=== PATIENT | female | born 1960 | race Hispanic/Latino ===

== ENCOUNTER 2018-07-25 09:24 | Inpatient (IN) | payer OTHER ==
[2018-07-25 09:36] VITALS: BMI 22.9
[2018-07-25] MEDS ORDERED: Sodium Chloride 0.9% 500 ML IV STA (09:38)
[2018-07-25] MEDS ORDERED: Naloxone 0.4 mg/ml Inj (Adult) IVP STA (09:38)
--- NOTE | 2018-07-25 09:51 | ED PDOC ---
Arrival/HPI - General Historian: Family, EMS - History of Present Illness Narrative History of Present Illness (Text): 07/25/18 09:39 Patient is a 58 year old female presenting to the emergency room unresponsive. Patient was found unresponsive by her son at home who called 911. and son arrived to the hospital shortly after to give history. Patient has no medical problems and was last seen normal this morning at 7:30am. When son went in to wake her up for work, when he was unable to wake her so he called 911. Per EMS, there was a note at the house stating, "I love you all so much, more than anything, I'm sorry." Patient was given 2mg of Narcan in the field with minimal response. There was a zip lock bag of unknown pills found in the house. Per family, patient has been reporting difficulty with sleep and went to see a psychologist for the first time yesterday. The family does not know what happened at her psychology appointment and does not know if she was prescribed any new medications. PMD: Dr. Steinberg <Harley Proctor - Last Filed: 07/25/18 13:59> <Lion Aguirre - Last Filed: 07/25/18 16:00> - General Chief Complaint: Altered Mental Status Time Seen by Provider: 07/25/18 09:28 Past Medical History - Provider Review Nursing Documentation Reviewed: Yes <Harley Proctor - Last Filed: 07/25/18 13:59> Family/Social History - Physician Review Nursing Documentation Reviewed: Yes Family/Social History: Unknown Family HX <Harley Proctor - Last Filed: 07/25/18 13:59> Allergies/Home Meds <Harley Proctor - Last Filed: 07/25/18 13:59> <iLon Aguirre - Last Filed: 07/25/18 16:00> Allergies/Adverse Reactions: Allergies Unobtainable Allergy (Verified 07/25/18 15:34) Home Medications: Home Meds Medication Instructions Recorded Confirmed Melatonin [Melatin 3 mg-1 mg] 1 tab PO PRN PRN 07/25/18 07/25/18 Review of Systems - Physician Review All systems were reviewed & negative as marked: Yes - Review of Systems Systems not reviewed;Unavailable: Altered Mental Status (unresponsive) <Harley Proctor - Last Filed: 07/25/18 13:59> Physical Exam - Physical Exam Physical Exam Limitations: Altered Mental Status Vital Signs Reviewed: Yes Temperature: Hypothermic Blood Pressure: Normal Pulse: Regular Respiratory Rate: Normal Appearance: Positive for: Well-Appearing, Non-Toxic, Comfortable Pain Distress: None Mental Status: Positive for: Alert and Oriented X 3 - Systems Exam Head: Present: Atraumatic, Normocephalic Pupils: Present: Other (3mm b/l). No: Pinpoint Conjunctiva: Present: Normal Mouth: Present: Moist Mucous Membranes Pharnyx: Present: Normal. No: ERYTHEMA, EXUDATE, TONSILS ENLARGED Nose (External): Present: Atraumatic Nose (Internal): Present: No Active Bleeding, Moist Respiratory/Chest: Present: Clear to Auscultation, Good Air Exchange. No: Respiratory Distress, Accessory Muscle Use Cardiovascular: Present: Regular Rate and Rhythm, Normal S1, S2. No: Murmurs Abdomen: No: Distention, Peritoneal Signs Upper Extremity: Present: Normal Inspection, NORMAL PULSES. No: Cyanosis, Edema Lower Extremity: Present: Normal Inspection, NORMAL PULSES. No: Edema Neurological: No: GCS=15 (GCS = 6 (eye 1, verbal 1, motor 4 - withdrawals from pain only)) Skin: Present: Warm, Dry, Normal Color. No: Rashes <Harley Proctor - Last Filed: 07/25/18 13:59> Vital Signs Pulse Resp BP Pulse Ox 07/25/18 09:25 88 20 107/62 99 - Systems Exam Neurological: Present: GCS=15 <Lion Aguirre - Last Filed: 07/25/18 16:00> Medical Decision Making ED Course and Treatment: Patient is a 58 year old female with no past medical history presenting unresponsive by EMS with apparent suicide note. There was a zip lock bag found with unknown pills inside. Bag sent to Pharmacy to be identified. GCS - 6 (eyes 1, verbal 1, motor 4 - withdrawals from pain) Attempted Narcan 0.4mg IVP - no response. (pt was also given 2mg in the field by EMS) Patient vomited once (prior to intubation) Patient intubated. * Etomidate 20mg, Succinylholine 100mg given * 7.5 tube, 23@lip * Post intubation CXR shows tube deep - tube pulled back 1 cm to 22@lip Labs, EKG and CT Head/Chest/Abd/pelvis Case discussed in detail with Dr. Zambrano (ICU) who has accepted patient. Case discussed in detail with Dr. Sadia Love (Hospitalist) who has accepted patient to hospitalist service (Private patient of Dr. Steinberg) Patient admitted to ICU. - Lab Interpretations I have reviewed the lab results: Yes - RAD Interpretation Narrative RAD Interpretations (Text): 07/25/18 13:59 Chest/abd/pel - no acute findings Head CT w/o - Limited study as above. No acute intracranial pathology identified. Please note that MRI with diffusion imaging is more sensitive in the detection of acute ischemic event. Mucosal thickening of the ethmoid air cells and sphenoid sinuses. Small fluid in the left sphenoid sinus. Partially imaged endotracheal tube and nasogastric tube. CXR - The endotracheal and nasogastric tubes are in satisfactory position. Bulk Loader: Radiologist - EKG Interpretation EKG Interpretation (Text): 07/25/18 11:13 NSR @77bpm, normal axis, prolonged QTc 486, no acute ST segment elevations or depressions. Interpreted by ED Physician: Yes Type: 12 lead EKG Comparison: No previous EKG avail. - Medication Orders Current Medication Orders: Naloxone HCl (Narcan) 0.4 mg IVP STAT STA Stop: 07/25/18 09:39 <Harley Proctor - Last Filed: 07/25/18 13:59> ED Course and Treatment: 07/25/18 10:20: Case discussed in detail with Dr. Zambrano (ICU). Accepted by ICU 07/25/18 10:31: Case discussed in detail with Dr. Hill Love (Hospitalist) Accepted to her service 58 yr old female p/w OD, Suicide attempt. No widening QRS on EKG or large R wave on AVR. Tox unremarkable. Given GCS of 6 pt was intubated. Tube in place, deep, 1cm pulled back. Fentanyl started by myself after pt noted to be retching on tube- ICU agreeable w/ fentanyl. - Lab Interpretations Lab Results: 07/25/18 09:30 07/25/18 09:30 Lab Results 07/25/18 09:50: Urine Color Yellow, Urine Appearance Clear, Urine pH 6.0, Ur Specific [place] <= 1.005, Urine Protein Negative, Urine Glucose (UA) Negative, Urine Ketones Negative, Urine Blood Negative, Urine Nitrate Negative, Urine Bilirubin Negative, Urine Urobilinogen 0.2, Ur Leukocyte Esterase Negative 07/25/18 09:30: Alcohol, Quantitative < 10 07/25/18 09:30: Salicylates < 1 L, Acetaminophen < 10.0 L 07/25/18 09:30: Sodium 141, Potassium 4.1, Chloride 107, Carbon Dioxide 20 L, Anion Gap 18, BUN 15, Creatinine 1.0, Est GFR ( Amer) > 60, Est GFR (Non- Af Amer) 57, Random Glucose 140 H, Calcium 8.5, Magnesium 2.5 H, Total Bilirubin 0.4, AST 23, ALT 26, Alkaline Phosphatase 62, Total Protein 6.2, Albumin 3.3, Globulin 2.9, Albumin/Globulin Ratio 1.1 07/25/18 09:30: WBC 9.0 D, RBC 4.27, Hgb 13.4, Hct 40.1, MCV 93.9, MCH 31.4, MCHC 33.4, RDW 12.3, Plt Count 207, MPV 9.2, Gran % 71.9 H, Lymph % (Auto) 20.5 L, [place] % (Auto) 7.2 H, Eos % (Auto) 0.3 L, Baso % (Auto) 0.1, Gran # 6.49, Lymph # (Auto) 1.9, [place] # (Auto) 0.7 H, Eos # (Auto) 0.0, Baso # (Auto) 0.01 - RAD Interpretation Radiology Orders: 07/25/18 09:39 CHEST PORTABLE [RAD] Stat 07/25/18 10:21 CHEST PORTABLE [RAD] Stat - Medication Orders Current Medication Orders: Fentanyl Citrate (Fentanyl Citrate/Sodium Chloride 1 Mg/100 Ml) 1,000 mcg in 100 mls @ 2 mls/hr IV .Q24H PRN; Protocol PRN Reason: TITRATE PER MD ORDER Discontinued Medications Sodium Chloride (Sodium Chloride 0.9%) 500 mls @ 1,000 mls/hr IV .Q30M STA Stop: 07/25/18 10:07 Last Admin: 07/25/18 09:50 Dose: 1,000 mls/hr eMAR Start Stop Document 07/25/18 09:50 SRE (Rec: 07/25/18 09:50 SRE [id number]) Intravenous Solution Start Date 07/25/18 Start Time 09:50 End Date 07/25/18 End time 10:20 Total Infusion Time 30 Naloxone HCl (Narcan) 0.4 mg IVP STAT STA Stop: 07/25/18 09:39 Last Admin: 07/25/18 09:49 Dose: 0.4 mg IVP Administration Document 07/25/18 09:49 SRE (Rec: 07/25/18 09:49 SRE [id number]) Charges for Administration # of IVP Administrations 1 <Lion Aguirre - Last Filed: 07/25/18 16:00> Disposition/Present on Arrival - Present on Arrival History of DVT/PE: No History of Uncontrolled Diabetes: No Urinary Catheter: No History of Decub. Ulcer: No History Surgical Site Infection Following: None <Harley Proctor - Last Filed: 07/25/18 13:59> - Present on Arrival Any Indicators Present on Arrival: No - Disposition Have Diagnosis and Disposition been Completed?: Yes Disposition Time: 10:31 <Lion Aguirre - Last Filed: 07/25/18 16:00> - Disposition Diagnosis: Overdose Disposition: HOSPITALIZED Patient Problems: Current Active Problems Problem Status Onset Overdose Acute Condition: CRITICAL
[2018-07-25] MEDS ORDERED: Etomidate 20 mg/10ml Inj IV ONE (09:56)
[2018-07-25] MEDS ORDERED: Succinylcholine 200 mg/10 ml Inj IV ONE (09:56)
[2018-07-25 10:03] LABS: URINE BILIRUBIN NEGATIVE (NEGATIVE); URINE BLOOD NEGATIVE (NEGATIVE); URINE GLUCOSE (UA) NEGATIVE (NEGATIVE); URINE LEUKOCYTE ESTERASE NEGATIVE Leu/uL (NEGATIVE); URINE PROTEIN NEGATIVE mg/dL (<30 mg/dL); URINE UROBILINOGEN 0.2 E.U./dL (<1 E.U./dL)
[2018-07-25 10:04] LABS: BASO # 0.01 K/mm3 (0.0-2.0); BASO % 0.1 % (0.0-3.0); EOS % 0.3 % (1.5-5.0); GRAN # 6.49 (1.4-6.5); GRAN % 71.9 % (50.0-68.0); HEMOGLOBIN 13.4 g/dL (12.0-16.0); LYMPH # 1.9 (1.2-3.4); LYMPH % 20.5 % (22.0-35.0); MEAN CELL VOLUME 93.9 fl (80.0-105.0); MEAN CORPUSCULAR HEMOGLOBIN 31.4 pg (25.0-35.0); MEAN CORPUSCULAR HGB CONC 33.4 g/dl (31.0-37.0); MEAN PLATELET VOLUME 9.2 fl (7.0-11.0); MONO # 0.7 (0.1-0.6); MONO % 7.2 % (1.0-6.0); RBC 4.27 10^6/uL (3.5-6.1); RED CELL DISTRIBUTION WIDTH 12.3 % (11.5-14.5)
[2018-07-25 10:05] LABS: URINE APPEARANCE CLEAR (CLEAR); URINE COLOR YELLOW (YELLOW)
[2018-07-25 10:16] LABS: ALB/GLOB RATIO 1.1 (1.1-1.8); ALBUMIN 3.3 g/dL (3.0-4.8); ALT/SGPT 26 U/L (7-56); AST/SGOT 23 U/L (14-36); BLOOD UREA NITROGEN 15 mg/dL (7-21); CALCIUM 8.5 mg/dL (8.4-10.5); GFR NON-AFRICAN AMERICAN 57
[2018-07-25 10:17] LABS: ACETAMINOPHEN < 10.0 ug/ml (10.0-20.0); SALICYLATE < 1 mg/dL (2.0-20.0)
[2018-07-25] MEDS ORDERED: Fentanyl 1000mcg/100ml NS 1,000 MCG/100 ML BAG IV PRN ×2 (10:21→12:06)
[2018-07-25 10:26] LABS: OPIATES, UR NEGATIVE (NEGATIVE)
[2018-07-25 10:29] LABS: BARBITURATES, UR NEGATIVE (NEGATIVE); BENZODIAZEPINES, UR NEGATIVE (NEGATIVE); PHENCYCLIDINE, UR NEGATIVE (NEGATIVE)
[2018-07-25 11:02] LABS: ARTERIAL BLOOD GAS HCO3 17.9 mmol/L (21-28); ARTERIAL BLOOD GAS O2 SAT 100.3 % (95-98); ARTERIAL BLOOD GAS PCO2 40 mm/Hg (35-45); ARTERIAL BLOOD GAS PH 7.26 (7.35-7.45); ARTERIAL BLOOD GAS TCO2 19.1 mmol.L (22-28)
--- NOTE | 2018-07-25 11:13 | CP.PCM.HP ---
<Stephanie White - Last Filed: 07/25/18 14:39> History of Present Illness - History of Present Illness History of Present Illness: Patient is a 58 year old female with no PMH who presented [place] [facility] after being found unresponsive at home by her son and BIBDean. Patient recieved Narcan in the field with little improvement. Patient was last seen normal this morning at 7:30am. When son went in to wake her up for work, when he was unable to wake her so he called 911. Per EMS, there was a note at the house stating, "I love you all so much, more than anything, I'm sorry." Patient was given 2mg of Narcan in the field with minimal response. There was a zip lock bag of unknown pills found in the house. Per family, patient has been reporting difficulty with sleep and went to see a psychologist for the first time yesterday. The family does not know what happened at her psychology appointment and does not know if she was prescribed any new medications. Family additionally indicates that patient has been feeling stressed and experiencing increased anxiety though they were unsure what the source of the anxiety was. Family is unsure of where/ how the patient may have obtained the pills as neither of them take any medications. History is limited to family as patient is intubated and not responsive upon interview. PMH: family denies PSH: family denies All: family unsure Social: family denies ETOH, tobacco and drug abuse PMD: Dr. Steinberg Present on Admission - Present on Admission Any Indicators Present on Admission: No Review of Systems - Review of Systems Systems not reviewed;Unavailable: Altered Mental Status, Intubated Past Patient History - Past Social History Smoking Status: Never Smoked - PSYCHIATRIC Hx Substance Use: No - ANESTHESIA Hx Anesthesia: No Meds Allergies/Adverse Reactions: Allergies Allergy/AdvReac Type Severity Reaction Status Date / Time Unobtainable Allergy Verified 07/25/18 15:34 Physical Exam - Constitutional Appears: Well, Non-toxic, Other (intubated) - Head Exam Head Exam: ATRAUMATIC, NORMOCEPHALIC - Eye Exam Eye Exam: Normal appearance, PERRL. absent: Conjunctival injection, Periorbital swelling, Scleral icterus Pupil Exam: PERRL. absent: Miosis, Mydriatic, Unequal - ENT Exam ENT Exam: Mucous Membranes Moist - Neck Exam Neck exam: Positive for: Full Rom - Respiratory Exam Respiratory Exam: NORMAL BREATHING PATTERN. absent: Rales, Rhonchi, Wheezes Additional comments: intubated - Cardiovascular Exam Cardiovascular Exam: REGULAR RHYTHM - GI/Abdominal Exam GI & Abdominal Exam: Soft. absent: Distended, Firm, Guarding, Rebound, Rigid, Tenderness - Extremities Exam Extremities exam: Positive for: normal capillary refill, pedal pulses present. Negative for: calf tenderness, pedal edema, tenderness - Neurological Exam Neurological exam: Altered - Psychiatric Exam Psychiatric exam: Suicidal Ideation (suspected, note left stating " I love you all more than anything, I'm sorry") - Skin Skin Exam: Dry, Intact, Normal Color, Warm Results - Vital Signs Recent Vital Signs: Last Vital Signs Temp 95.4 F L 07/25/18 09:25 Pulse 103 H 07/25/18 10:10 Resp 22 07/25/18 10:10 BP 122/62 07/25/18 10:10 Pulse Ox 97 07/25/18 10:10 - Labs Result Diagrams: 07/25/18 09:30 07/25/18 09:30 Labs: Laboratory Results - last 24 hr 07/25/18 07/25/18 07/25/18 09:30 09:30 09:30 WBC 9.0 D RBC 4.27 Hgb 13.4 Hct 40.1 MCV 93.9 MCH 31.4 MCHC 33.4 RDW 12.3 Plt Count 207 MPV 9.2 Gran % 71.9 H Lymph % (Auto) 20.5 L [place] % (Auto) 7.2 H Eos % (Auto) 0.3 L Baso % (Auto) 0.1 Gran # 6.49 Lymph # (Auto) 1.9 [place] # (Auto) 0.7 H Eos # (Auto) 0.0 Baso # (Auto) 0.01 Sodium 141 Potassium 4.1 Chloride 107 Carbon Dioxide 20 L Anion Gap 18 BUN 15 Creatinine 1.0 Est GFR ( Amer) > 60 Est GFR (Non-Af Amer) 57 Random Glucose 140 H Calcium 8.5 Magnesium 2.5 H Total Bilirubin 0.4 AST 23 ALT 26 Alkaline Phosphatase 62 Total Protein 6.2 Albumin 3.3 Globulin 2.9 Albumin/Globulin Ratio 1.1 Urine Color Urine Appearance Urine pH Ur Specific [place] Urine Protein Urine Glucose (UA) Urine Ketones Urine Blood Urine Nitrate Urine Bilirubin Urine Urobilinogen Ur Leukocyte Esterase Salicylates < 1 L Urine Opiates Screen Urine Methadone Screen Acetaminophen < 10.0 L Ur Barbiturates Screen Ur Phencyclidine Scrn Ur Amphetamines Screen U Benzodiazepines Scrn U Oth Cocaine Metabols U Cannabinoids Screen Alcohol, Quantitative 07/25/18 07/25/18 07/25/18 09:30 09:50 09:50 WBC RBC Hgb Hct MCV MCH MCHC RDW Plt Count MPV Gran % Lymph % (Auto) [place] % (Auto) Eos % (Auto) Baso % (Auto) Gran # Lymph # (Auto) [place] # (Auto) Eos # (Auto) Baso # (Auto) Sodium Potassium Chloride Carbon Dioxide Anion Gap BUN Creatinine Est GFR ( Amer) Est GFR (Non-Af Amer) Random Glucose Calcium Magnesium Total Bilirubin AST ALT Alkaline Phosphatase Total Protein Albumin Globulin Albumin/Globulin Ratio Urine Color Yellow Urine Appearance Clear Urine pH 6.0 Ur Specific [place] <= 1.005 Urine Protein Negative Urine Glucose (UA) Negative Urine Ketones Negative Urine Blood Negative Urine Nitrate Negative Urine Bilirubin Negative Urine Urobilinogen 0.2 Ur Leukocyte Esterase Negative Salicylates Urine Opiates Screen Negative Urine Methadone Screen Negative Acetaminophen Ur Barbiturates Screen Negative Ur Phencyclidine Scrn Negative Ur Amphetamines Screen Negative U Benzodiazepines Scrn Negative U Oth Cocaine Metabols Negative U Cannabinoids Screen Negative Alcohol, Quantitative < 10 Assessment & Plan - Assessment and Plan (Free Text) Assessment: 58 yr old female with suspected suicide attempt and possible overdose Plan: Possible Drug overdose: * admit to ICU for monitoring * f/u CT head, chest abdomen, pelvis * pharmacy evaluation of pills revealed multiviatmins and unknown white oval pill * poison control contacted, recommended CK value * ordered CK * wean ventilator as tolerated * will continue to monitor PPX: SCD, protonix, hold anticoagulation pending CT imaging Patient seen and examined with Dr. Hawk White, PGY 1 - Date & Time Date: 07/25/18 Time: 10:35 <Eboni Arechiga - Last Filed: 07/25/18 17:41> Results - Vital Signs Recent Vital Signs: Last Vital Signs Temp 98.7 F 07/25/18 16:14 Pulse 77 07/25/18 15:59 Resp 21 07/25/18 15:59 BP 116/66 07/25/18 16:00 Pulse Ox 100 07/25/18 15:59 - Labs Result Diagrams: 07/25/18 16:25 07/25/18 15:45 Labs: Laboratory Results - last 24 hr 07/25/18 07/25/18 07/25/18 09:30 09:30 09:30 WBC 9.0 D RBC 4.27 Hgb 13.4 Hct 40.1 MCV 93.9 MCH 31.4 MCHC 33.4 RDW 12.3 Plt Count 207 MPV 9.2 Gran % 71.9 H Lymph % (Auto) 20.5 L [place] % (Auto) 7.2 H Eos % (Auto) 0.3 L Baso % (Auto) 0.1 Gran # 6.49 Lymph # (Auto) 1.9 [place] # (Auto) 0.7 H Eos # (Auto) 0.0 Baso # (Auto) 0.01 pCO2 pO2 HCO3 ABG pH ABG Total CO2 ABG O2 Saturation ABG O2 Content ABG Base Excess ABG Hemoglobin ABG Carboxyhemoglobin POC ABG HHb (Measured) ABG Methemoglobin ABG O2 Capacity ABG Potassium VBG pH VBG pCO2 VBG HCO3 VBG Total CO2 VBG O2 Sat (Calc) VBG Base Excess VBG Potassium Hgb O2 Saturation Glucose Lactate Mechanical Rate FiO2 Tidal Volume PEEP Sodium 141 Potassium 4.1 Chloride 107 Carbon Dioxide 20 L Anion Gap 18 BUN 15 Creatinine 1.0 Est GFR ( Amer) > 60 Est GFR (Non-Af Amer) 57 Random Glucose 140 H Serum Osmolality Calcium 8.5 Magnesium 2.5 H Total Bilirubin 0.4 AST 23 ALT 26 Alkaline Phosphatase 62 Total Creatine Kinase Troponin I Total Protein 6.2 Albumin 3.3 Globulin 2.9 Albumin/Globulin Ratio 1.1 Arterial Blood Potassium Venous Blood Potassium Urine Color Urine Appearance Urine pH Ur Specific [place] Urine Protein Urine Glucose (UA) Urine Ketones Urine Blood Urine Nitrate Urine Bilirubin Urine Urobilinogen Ur Leukocyte Esterase Urine Osmolality Ur Random Sodium Ur Random Potassium Salicylates < 1 L Urine Opiates Screen Urine Methadone Screen Acetaminophen < 10.0 L Ur Barbiturates Screen Ur Phencyclidine Scrn Ur Amphetamines Screen U Benzodiazepines Scrn U Oth Cocaine Metabols U Cannabinoids Screen Alcohol, Quantitative 07/25/18 07/25/18 07/25/18 09:30 09:50 09:50 WBC RBC Hgb Hct MCV MCH MCHC RDW Plt Count MPV Gran % Lymph % (Auto) [place] % (Auto) Eos % (Auto) Baso % (Auto) Gran # Lymph # (Auto) [place] # (Auto) Eos # (Auto) Baso # (Auto) pCO2 pO2 HCO3 ABG pH ABG Total CO2 ABG O2 Saturation ABG O2 Content ABG Base Excess ABG Hemoglobin ABG Carboxyhemoglobin POC ABG HHb (Measured) ABG Methemoglobin ABG O2 Capacity ABG Potassium VBG pH VBG pCO2 VBG HCO3 VBG Total CO2 VBG O2 Sat (Calc) VBG Base Excess VBG Potassium Hgb O2 Saturation Glucose Lactate Mechanical Rate FiO2 Tidal Volume PEEP Sodium Potassium Chloride Carbon Dioxide Anion Gap BUN Creatinine Est GFR ( Amer) Est GFR (Non-Af Amer) Random Glucose Serum Osmolality Calcium Magnesium Total Bilirubin AST ALT Alkaline Phosphatase Total Creatine Kinase Troponin I Total Protein Albumin Globulin Albumin/Globulin Ratio Arterial Blood Potassium Venous Blood Potassium Urine Color Yellow Urine Appearance Clear Urine pH 6.0 Ur Specific [place] <= 1.005 Urine Protein Negative Urine Glucose (UA) Negative Urine Ketones Negative Urine Blood Negative Urine Nitrate Negative Urine Bilirubin Negative Urine Urobilinogen 0.2 Ur Leukocyte Esterase Negative Urine Osmolality Ur Random Sodium Ur Random Potassium Salicylates Urine Opiates Screen Negative Urine Methadone Screen Negative Acetaminophen Ur Barbiturates Screen Negative Ur Phencyclidine Scrn Negative Ur Amphetamines Screen Negative U Benzodiazepines Scrn Negative U Oth Cocaine Metabols Negative U Cannabinoids Screen Negative Alcohol, Quantitative < 10 07/25/18 07/25/18 07/25/18 10:50 15:05 15:45 WBC RBC Hgb Hct MCV MCH MCHC RDW Plt Count MPV Gran % Lymph % (Auto) [place] % (Auto) Eos % (Auto) Baso % (Auto) Gran # Lymph # (Auto) [place] # (Auto) Eos # (Auto) Baso # (Auto) pCO2 40 37 pO2 205.0 H 192.0 H HCO3 17.9 L 16.6 L ABG pH 7.26 L 7.26 L ABG Total CO2 19.1 L 17.7 L ABG O2 Saturation 100.3 H 100.1 H ABG O2 Content 20.4 ABG Base Excess -8.7 L -9.7 L ABG Hemoglobin 14.5 ABG Carboxyhemoglobin 1.2 POC ABG HHb (Measured) -0.1 L ABG Methemoglobin 0.7 ABG O2 Capacity 20.4 ABG Potassium 3.8 VBG pH VBG pCO2 VBG HCO3 VBG Total CO2 VBG O2 Sat (Calc) VBG Base Excess VBG Potassium Hgb O2 Saturation 98.2 H Glucose 118 H Lactate 2.2 H Mechanical Rate 16 FiO2 40.0 40.0 Tidal Volume 400 PEEP 5 Sodium 141.0 149 H Potassium 3.9 Chloride 114.0 H 113 H Carbon Dioxide 21 Anion Gap 19 BUN 15 Creatinine 1.0 Est GFR ( Amer) > 60 Est GFR (Non-Af Amer) 57 Random Glucose 112 H Serum Osmolality Calcium 8.3 L Magnesium Total Bilirubin AST ALT Alkaline Phosphatase Total Creatine Kinase 163 Troponin I < 0.01 Total Protein Albumin Globulin Albumin/Globulin Ratio Arterial Blood Potassium 3.8 Venous Blood Potassium Urine Color Urine Appearance Urine pH Ur Specific [place] Urine Protein Urine Glucose (UA) Urine Ketones Urine Blood Urine Nitrate Urine Bilirubin Urine Urobilinogen Ur Leukocyte Esterase Urine Osmolality Ur Random Sodium Ur Random Potassium Salicylates Urine Opiates Screen Urine Methadone Screen Acetaminophen Ur Barbiturates Screen Ur Phencyclidine Scrn Ur Amphetamines Screen U Benzodiazepines Scrn U Oth Cocaine Metabols U Cannabinoids Screen Alcohol, Quantitative 07/25/18 07/25/18 07/25/18 15:45 15:45 16:25 WBC 7.5 RBC 4.62 Hgb 14.6 Hct 44.3 MCV 95.9 MCH 31.6 MCHC 33.0 RDW 12.5 Plt Count 212 MPV 8.8 Gran % 86.3 H Lymph % (Auto) 11.3 L [place] % (Auto) 2.3 Eos % (Auto) 0.0 L Baso % (Auto) 0.1 Gran # 6.49 Lymph # (Auto) 0.9 L [place] # (Auto) 0.2 Eos # (Auto) 0.0 Baso # (Auto) 0.01 pCO2 pO2 45 HCO3 ABG pH ABG Total CO2 ABG O2 Saturation ABG O2 Content ABG Base Excess ABG Hemoglobin ABG Carboxyhemoglobin POC ABG HHb (Measured) ABG Methemoglobin ABG O2 Capacity ABG Potassium VBG pH 7.19 L* VBG pCO2 53.0 VBG HCO3 20.2 L VBG Total CO2 21.8 L VBG O2 Sat (Calc) 81.4 H VBG Base Excess -8.3 L VBG Potassium 3.8 Hgb O2 Saturation Glucose 109 H Lactate 1.9 Mechanical Rate FiO2 21.0 Tidal Volume PEEP Sodium 146.0 Potassium Chloride 112.0 H Carbon Dioxide Anion Gap BUN Creatinine Est GFR ( Amer) Est GFR (Non-Af Amer) Random Glucose Serum Osmolality 311 H Calcium Magnesium Total Bilirubin AST ALT Alkaline Phosphatase Total Creatine Kinase Troponin I Total Protein Albumin Globulin Albumin/Globulin Ratio Arterial Blood Potassium Venous Blood Potassium 3.8 Urine Color Urine Appearance Urine pH Ur Specific [place] Urine Protein Urine Glucose (UA) Urine Ketones Urine Blood Urine Nitrate Urine Bilirubin Urine Urobilinogen Ur Leukocyte Esterase Urine Osmolality Ur Random Sodium Ur Random Potassium Salicylates Urine Opiates Screen Urine Methadone Screen Acetaminophen Ur Barbiturates Screen Ur Phencyclidine Scrn Ur Amphetamines Screen U Benzodiazepines Scrn U Oth Cocaine Metabols U Cannabinoids Screen Alcohol, Quantitative 07/25/18 16:31 WBC RBC Hgb Hct MCV MCH MCHC RDW Plt Count MPV Gran % Lymph % (Auto) [place] % (Auto) Eos % (Auto) Baso % (Auto) Gran # Lymph # (Auto) [place] # (Auto) Eos # (Auto) Baso # (Auto) pCO2 pO2 HCO3 ABG pH ABG Total CO2 ABG O2 Saturation ABG O2 Content ABG Base Excess ABG Hemoglobin ABG Carboxyhemoglobin POC ABG HHb (Measured) ABG Methemoglobin ABG O2 Capacity ABG Potassium VBG pH VBG pCO2 VBG HCO3 VBG Total CO2 VBG O2 Sat (Calc) VBG Base Excess VBG Potassium Hgb O2 Saturation Glucose Lactate Mechanical Rate FiO2 Tidal Volume PEEP Sodium Potassium Chloride Carbon Dioxide Anion Gap BUN Creatinine Est GFR ( Amer) Est GFR (Non-Af Amer) Random Glucose Serum Osmolality Calcium Magnesium Total Bilirubin AST ALT Alkaline Phosphatase Total Creatine Kinase Troponin I Total Protein Albumin Globulin Albumin/Globulin Ratio Arterial Blood Potassium Venous Blood Potassium Urine Color Urine Appearance Urine pH Ur Specific [place] Urine Protein Urine Glucose (UA) Urine Ketones Urine Blood Urine Nitrate Urine Bilirubin Urine Urobilinogen Ur Leukocyte Esterase Urine Osmolality 337 Ur Random Sodium 146 Ur Random Potassium 14.5 Salicylates Urine Opiates Screen Urine Methadone Screen Acetaminophen Ur Barbiturates Screen Ur Phencyclidine Scrn Ur Amphetamines Screen U Benzodiazepines Scrn U Oth Cocaine Metabols U Cannabinoids Screen Alcohol, Quantitative Attending/Attestation - Attestation I have personally seen and examined this patient.: Yes I have fully participated in the care of the patient.: Yes I have reviewed all pertinent clinical information: Yes Notes (Text): 07/25/18 17:36 58 year old female with no known past medical history who was found unresponsive at home by the son. Per EMS a note was also found stating, "I love you so much, more than anything, I'm sorry" alone with a ziplock bag with unknown pills at home. She received narcan with minimal response. She was intubated for airway protection. Urine drug screen, alcohol and tylenol level were negative. CT head and CT chest/abdomen/pelvis are ordered. EKG shows prolonged QTc. Patient will be admitted to ICU. Consider 1:1 observation and psychiatry evaluation once patient is extubated. Eboni Arechiga MD Hospitalist.
--- NOTE | 2018-07-25 11:26 | PCM.PROC ---
Procedures Attestation:: I certify that I have explained the specified Operation(s) or Procedure(s), risks, benefits and reasonable alternatives to the Patient and/or other person responsible. The opportunity was given to ask questions and all questions answered - Intubation Time Out Performed: Yes Sedative: Etomidate Mg Given: 20 Paralytic: Succinylholine Mg Given: 100 Laryngoscope: Riley (3) ET Tube Size: 7.5 ET Tube Uncuffed: No ET Tube Secured at Depth: 23 ET Tube Secured Locarion: Lips ET Tube Placement Confirmation: Visualized Passing Through Cords, Breath Sounds Equal Bilaterally, No Breath Sounds Over Epigastrum, Confirmation w/Capnometry Patient Tolerated Procedure: Well Procedure Immediate Complications: None
--- NOTE | 2018-07-25 11:27 | RAD ---
Date of service: 07/25/2018 HISTORY: ams COMPARISON: No prior. FINDINGS: LUNGS: No active pulmonary disease. PLEURA: No significant pleural effusion identified, no pneumothorax apparent. CARDIOVASCULAR: Normal. OSSEOUS STRUCTURES: No significant abnormalities. VISUALIZED UPPER ABDOMEN: Normal. OTHER FINDINGS: None. IMPRESSION: No active disease.
--- NOTE | 2018-07-25 11:28 | RAD ---
Date of service: 07/25/2018 HISTORY: post tube COMPARISON: 07/25/2018 FINDINGS: LUNGS: No active pulmonary disease. PLEURA: No significant pleural effusion identified, no pneumothorax apparent. CARDIOVASCULAR: Normal. OSSEOUS STRUCTURES: No significant abnormalities. VISUALIZED UPPER ABDOMEN: Normal. OTHER FINDINGS: None. IMPRESSION: No active disease.
[2018-07-25] MEDS ORDERED: Iohexol 350 MG/100 ML VIAL ONE (12:37)
--- NOTE | 2018-07-25 12:40 | RAD ---
Date of service: 07/25/2018 HISTORY: post og placement COMPARISON: 07/25/2018 FINDINGS: LUNGS: No active pulmonary disease. PLEURA: No significant pleural effusion identified, no pneumothorax apparent. CARDIOVASCULAR: Normal. OSSEOUS STRUCTURES: No significant abnormalities. VISUALIZED UPPER ABDOMEN: Normal. OTHER FINDINGS: None. IMPRESSION: The endotracheal and nasogastric tubes are in satisfactory position
[2018-07-25] MEDS ORDERED: Sodium Chloride 0.9% 1,000 ML IV SCH (13:00)
--- NOTE | 2018-07-25 13:31 | CT ---
Date of service: 07/25/2018 PROCEDURE: CT HEAD WITHOUT CONTRAST. HISTORY: syncope, intubated COMPARISON: None available. TECHNIQUE: Axial computed tomography images were obtained through the head/brain without intravenous contrast. Radiation dose: Total exam DLP = 914.98 mGy-cm. This CT exam was performed using one or more of the following dose reduction techniques: Automated exposure control, adjustment of the mA and/or kV according to patient size, and/or use of iterative reconstruction technique. FINDINGS: Examination markedly limited by patient positioning. Extensive streak artifact obscures evaluation of the skull base. Partially imaged endotracheal tube and nasogastric tube. HEMORRHAGE: No intracranial hemorrhage. BRAIN: No mass effect or edema. The agarwal-white matter differentiation appears intact. Please note that MRI with diffusion imaging is more sensitive in the detection of acute ischemic event. VENTRICLES: No hydrocephalus. CALVARIUM: Unremarkable. PARANASAL SINUSES: Mucosal thickening of the ethmoid air cells and sphenoid sinuses. Small fluid in the left sphenoid sinus. MASTOID AIR CELLS: Unremarkable as visualized. No inflammatory changes. OTHER FINDINGS: None. IMPRESSION: Limited study as above. No acute intracranial pathology identified. Please note that MRI with diffusion imaging is more sensitive in the detection of acute ischemic event. Mucosal thickening of the ethmoid air cells and sphenoid sinuses. Small fluid in the left sphenoid sinus. Partially imaged endotracheal tube and nasogastric tube.
--- NOTE | 2018-07-25 13:51 | CT ---
Date of service: 07/25/2018 PROCEDURE: CT Chest, Abdomen and Pelvis with intravenous contrast HISTORY: syncope, intubated, abdominal pain COMPARISON: None available. TECHNIQUE: IV dose administered: 100 cc of Omni 350 Radiation dose: Total exam DLP = 563 mGy-cm. This CT exam was performed using one or more of the following dose reduction techniques: Automated exposure control, adjustment of the mA and/or kV according to patient size, and/or use of iterative reconstruction technique. FINDINGS: CT CHEST WITH CONTRAST: LUNGS: Clear. No nodule, mass or consolidation. MEDIASTINUM: Unremarkable. Normal caliber aorta and pulmonary arterial trunk. No aortic dissection. Normal size heart. LYMPH NODES: Unremarkable. PLEURA: Unremarkable. No pneumothorax. No pleural fluid. BONES: Unremarkable. OTHER FINDINGS: None. CT ABDOMEN AND PELVIS: LIVER: Unremarkable. No gross lesion or ductal dilatation. GALLBLADDER AND BILE DUCTS: Unremarkable. PANCREAS: Unremarkable. No gross lesion or ductal dilatation. SPLEEN: Unremarkable. ADRENALS: Unremarkable. No mass. KIDNEYS AND URETERS: Unremarkable. No hydronephrosis. No solid mass. VASCULATURE: Unremarkable. No aortic aneurysm. BOWEL: Unremarkable. No obstruction. No gross mural thickening. APPENDIX: Normal appendix. PERITONEUM: Unremarkable. No free fluid. No free air. LYMPH NODES: Unremarkable. No enlarged lymph nodes. BLADDER: Unremarkable. REPRODUCTIVE: Unremarkable. BONES: No acute fracture. OTHER FINDINGS: None. IMPRESSION: No acute findings
[2018-07-25 15:11] LABS: ARTERIAL BLOOD GAS HCO3 16.6 mmol/L (21-28); ARTERIAL BLOOD GAS HEMOGLOBIN 14.5 g/dL (11.7-17.4); ARTERIAL BLOOD GAS O2 CAPACITY 20.4 mL/dl (16-24); ARTERIAL BLOOD GAS O2 CONTENT 20.4 ML/dl (15-23); ARTERIAL BLOOD GAS O2 SAT 100.1 % (95-98); ARTERIAL BLOOD GAS PCO2 37 mm/Hg (35-45); ARTERIAL BLOOD GAS PH 7.26 (7.35-7.45); ARTERIAL BLOOD GAS TCO2 17.7 mmol.L (22-28)
--- NOTE | 2018-07-25 15:12 | CARD ---
APPROVED REPORT Date of service: 07/25/2018 EKG Measurement Heart [id number] <Conclusion> Normal sinus rhythm Prolonged QT Abnormal ECG
[2018-07-25] MEDS ORDERED: Sodium Bicarbonate 8.4% 75 MEQ in Dextrose 5% In Water 1,000 ML IV SCH (15:45)
[2018-07-25 15:58] LABS: VENOUS BLOOD GAS BASE EXCESS -8.3 mmol/L (0.0-2.0); VENOUS BLOOD GAS PO2 45 mm/Hg (30-55)
[2018-07-25] MEDS ORDERED: Sodium Chloride 0.9% 1,000 ML IV STA (16:00)
[2018-07-25 16:05] LABS: VENOUS BLOOD PH 7.19 (7.32-7.43)
[2018-07-25 16:09] LABS: BLOOD UREA NITROGEN 15 mg/dL (7-21); CALCIUM 8.3 mg/dL (8.4-10.5); GFR NON-AFRICAN AMERICAN 57
[2018-07-25] MEDS ORDERED: Pneumococcal 23-Valent Vaccine IM ONE (16:16)
[2018-07-25] MEDS ORDERED: Influenza Vaccine 60 mcg/0.5 mL SYR (4YR UP) IM ONE (16:16)
[2018-07-25 16:20] LABS: TROPONIN I < 0.01 ng/mL
[2018-07-25 16:37] LABS: BASO # 0.01 K/mm3 (0.0-2.0); BASO % 0.1 % (0.0-3.0); GRAN # 6.49 (1.4-6.5); GRAN % 86.3 % (50.0-68.0); HEMOGLOBIN 14.6 g/dL (12.0-16.0); LYMPH # 0.9 (1.2-3.4); LYMPH % 11.3 % (22.0-35.0); MEAN CELL VOLUME 95.9 fl (80.0-105.0); MEAN CORPUSCULAR HEMOGLOBIN 31.6 pg (25.0-35.0); MEAN PLATELET VOLUME 8.8 fl (7.0-11.0); MONO # 0.2 (0.1-0.6); MONO % 2.3 % (1.0-6.0); RBC 4.62 10^6/uL (3.5-6.1); RED CELL DISTRIBUTION WIDTH 12.5 % (11.5-14.5); WHITE BLOOD COUNT 7.5 10^3/ul (4.5-11.0)
[2018-07-25] MEDS: Sodium Bicarbonate 8.4% 75 MEQ in Dextrose 5% In Water 1,000 ML IV SCH ×2 (16:56→22:29)
--- NOTE | 2018-07-25 18:03 | CON ---
DATE: 07/25/2018 HISTORY OF PRESENT ILLNESS: The patient is a 58-year-old lady without any significant past medical history according to her primary medical doctor, , who was found by her family extremely sleepy and somnolent in the morning where they were not able to wake her up. She was emergently brought into ER where she was intubated to protect her airways. No opiates, benzodiazepines were found in close proximities to her; however, bottle with melatonin pills was found. The patient is not known to use any recreational or prescriptional drugs and has not been diagnosed with any chronic medical conditions. She does have occasional abdominal pain; however, test in emergency room was negative. No chest pain, no shortness of breath, no diarrhea, no constipation were noted by family member; however, the patient vomited once prior to intubation here in the emergency room. PAST MEDICAL HISTORY: None. PAST SURGICAL HISTORY: None. HOME MEDICATIONS: None. ALLERGIES: NKDA. REVIEW OF SYSTEMS: Review of 12-organ systems other than mentioned in the history of present illness is negative. FAMILY HISTORY: Noncontributory. SOCIAL HISTORY: No alcohol or illicit drug abuse. Chest x-ray in the emergency room did not reveal any acute pulmonary disease. EKG did not show any specific ischemic changes. PHYSICAL EXAMINATION: VITAL SIGNS: Heart rate 92, blood pressure 107/84, respiratory rate 24, oxygen saturation 100% on 60% FIO2. ENT: Head and neck atraumatic. LUNGS: Clear to auscultation bilaterally. HEART: Regular rate and rhythm. S1 and S2 normal. ABDOMEN: Soft, nontender and nondistended. MUSCULOSKELETAL: No C/C/E. NEURO: The patient was noted to move all extremities spontaneously. SKIN: Moist. PSYCH: The patient is alert, awake and oriented x3. Bedside echocardiogram did not reveal any severe left ventricular or right ventricular systolic dysfunction. LABORATORY DATA: WBC 9, hemoglobin 13.4, platelet count 207. Sodium 141, potassium 4.1, chloride 107, carbon dioxide 20, BUN 15, creatinine 1, glucose 140, magnesium 2.5, calcium 8.5, AST 23, ALT 26, total bilirubin 0.4. ABG showed last intubation showed 7.26/40/205. Chloride 114, glucose 118, lactic acid 2.2 that was on PEEP 5, FIO2 40%, respiratory rate 16. Respiratory rate was increased to 20. ABG will be repeated. ASSESSMENT AND PLAN: This is a 58-year-old lady, who was found unresponsive early in the morning by her family. She was intubated for airway protection. No clear-cut etiology of her altered mental status noted. She did, however, vomit once prior to intubation. No signs of cardiogenic shock. I also has low suspicion for septic shock as the patient does not have leukocytosis and fever. Urine toxicology screen is negative for Pneumocystis carinii pneumonia, amphetamine, benzodiazepines, opiates and methadone. Her salicylates, acetaminophen and alcohol level within normal limits. Her LFTs are within normal limits as well. She is not known to abuse alcohol, any recreational drugs. I will, however, proceed with CAT scan of the head and CT of chest, abdomen and pelvis with IV contrast to rule out any uncommon pathologies that could have caused her altered mental status. I will proceed with EEG. I will proceed with troponin trend. If no any particular abnormalities found and the patient recovered her mental status past spontaneous breathing trial, we will prepare her for extubation. Meanwhile, orogastric tube was placed, put on suction as the patient vomited before. Blood, urine culture were sent. Franko Zambrano MD
[2018-07-25] MEDS ORDERED: Sodium Chloride 0.45% 1,000 ML IV SCH (20:00)
[2018-07-25 21:06] LABS: BLOOD UREA NITROGEN 17 mg/dL (7-21); CALCIUM 7.7 mg/dL (8.4-10.5); GFR NON-AFRICAN AMERICAN 57
[2018-07-25 22:37] LABS: ARTERIAL BLOOD GAS HCO3 19.7 mmol/L (21-28); ARTERIAL BLOOD GAS O2 CAPACITY 19.8 mL/dl (16-24); ARTERIAL BLOOD GAS O2 CONTENT 19.9 ML/dl (15-23); ARTERIAL BLOOD GAS O2 SAT 100.5 % (95-98); ARTERIAL BLOOD GAS PCO2 34 mm/Hg (35-45); ARTERIAL BLOOD GAS PH 7.37 (7.35-7.45); ARTERIAL BLOOD GAS TCO2 20.7 mmol.L (22-28)
[2018-07-26] MEDS ORDERED: Sodium Bicarbonate 8.4% 75 MEQ in Dextrose 5% In Water 1,000 ML IV SCH (00:45)
[2018-07-26] MEDS: Sodium Chloride 0.45% 1,000 ML IV SCH ×3 (01:16→08:41)
[2018-07-26 06:04] LABS: GRAN # 7.24 (1.4-6.5); GRAN % 82.7 % (50.0-68.0); HEMOGLOBIN 13.6 g/dL (12.0-16.0); LYMPH # 0.7 (1.2-3.4); LYMPH % 8.5 % (22.0-35.0); MEAN CELL VOLUME 93.6 fl (80.0-105.0); MEAN CORPUSCULAR HEMOGLOBIN 31.1 pg (25.0-35.0); MEAN CORPUSCULAR HGB CONC 33.2 g/dl (31.0-37.0); MEAN PLATELET VOLUME 9.1 fl (7.0-11.0); MONO # 0.8 (0.1-0.6); MONO % 8.8 % (1.0-6.0); RBC 4.38 10^6/uL (3.5-6.1); RED CELL DISTRIBUTION WIDTH 12.8 % (11.5-14.5); WHITE BLOOD COUNT 8.8 10^3/ul (4.5-11.0)
[2018-07-26 06:49] LABS: ALB/GLOB RATIO 1.2 (1.1-1.8); ALBUMIN 3.2 g/dL (3.0-4.8); ALT/SGPT 27 U/L (7-56); AST/SGOT 32 U/L (14-36); BLOOD UREA NITROGEN 20 mg/dL (7-21); CALCIUM 6.8 mg/dL (8.4-10.5); GFR NON-AFRICAN AMERICAN 51
[2018-07-26] MEDS: Potassium Chloride 40 mEq/30 ml LIQ UD PO ONE ×2 (09:01→09:09)
--- NOTE | 2018-07-26 09:18 | PN ---
DATE: 07/26/2018 STACK CLERK NOTE LOCATION: At [facility]. SUBJECTIVE: The patient is resting in bed, awake and alert. Complains of no pain. No shortness of breath, cough, wheezing, chest congestion. No nausea or vomiting. No diarrhea. Is very comfortable. The patient is still on one-to-one watch. PHYSICAL EXAMINATION: VITAL SIGNS: Physical exam note that her temperature is 98, pulse is 85, respirations are 28 and BP is 128/67. SKIN: Warm and dry. HEENT: Head atraumatic, normocephalic. Eyes reactive to light. Ears, nose and throat seemed to be within normal limits. NECK: Supple. No JVD. No thyroid enlargement. No lymph nodes. HEART: Regular rate and rhythm. Normal S1, S2. LUNGS: Reveal good breath sounds bilaterally. ABDOMEN: Soft, nontender. Normal bowel sounds. No organomegaly noted. GENITALIA AND RECTAL: Deferred. MUSCULOSKELETAL: No joint deformities. EXTREMITIES: Reveal trace lower extremity edema. NEUROLOGICAL: She seems to be grossly intact. LABORATORY DATA: As far as her laboratories, her white count is 8.8, hemoglobin is 13.6, hematocrit 41 and platelets of 208,000. The patient's sodium is 141, potassium 3, chloride 108, CO2 of 24 with a BUN of 20, creatinine of 1.1 and a glucose is 130. As far as chest x-ray, reveals no infiltrates. IMPRESSION: This patient had a suicide attempt and presents with unknown drug overdose. The patient has a history of depression and is status post ventilator support and metabolic acidosis. The patient continues to require one-to-one observation. PLAN: As far as our plan, we will continue the one-to-one observation. She is on IV fluids of half normal saline and heparin subcu. The patient is getting Protonix as well as Zofran p.r.n. The patient is being seen by Psychiatry. We will continue to treat aggressively along with the other consultants and the primary care doctor. Jason Whitehead MD
--- NOTE | 2018-07-26 11:14 | CON ---
DATE: 07/25/2018 LOCATION: [facility] NEPHROLOGY CONSULTATION HISTORY OF PRESENT ILLNESS: The patient is a 58-year-old female with no past medical history, brought to ED after family found her unresponsive this morning. Nephrology now being consulted for metabolic abnormalities. Per the patient's son, she was very difficult to arouse; and therefore, subsequently EMS was called, and the patient was given Narcan in the field with little improvement. The patient was intubated for airway protection in ED. Was also given 500 mL of normal saline bolus and placed on normal saline at 100 mL per hour. The patient was also given dose of naloxone. In ICU, the patient self-extubated, was found to be persistently acidotic and placed on bicarb drip. Currently, the patient is alert, able to give history, keeps saying that she wanted to make things easier for her family and hence took half a bottle of ibuprofen. The patient denies taking any other substance including alcohol. The patient, otherwise, reports no nausea, vomiting or diarrhea lately. Appetite has been decreased over past few days. Denies any fever or chills. PAST MEDICAL HISTORY: As above. SOCIAL HISTORY: Never a smoker. No significant drinking history. FAMILY HISTORY: The patient denies. REVIEW OF SYSTEMS: CONSTITUTIONAL: Denies any fevers or chills. HEENT: Denies any difficulty swallowing. RESPIRATORY: Denies any shortness of breath. CARDIOVASCULAR: Denies any chest pain, occasional palpitations. GI: As per HPI. Family also reports constipation. : Reports chronic dysuria; urinates 4 to 5 times per night; drinks a lot of water, cannot quantify how much. EXTREMITIES: Denies any leg swelling. NEURO: Denies any headaches, dizziness. PSYCHIATRIC: Family reports has issues with anxiety. VITAL SIGNS: On presentation, blood pressure 107/62, decreasing to 90/31, currently 135/75 with heart rate of 83, respirations 20, temperature 98.7, O2 sat 100% on high-flow oxygen. PHYSICAL EXAMINATION: GENERAL: No distress. Conversing coherently in full sentences. HEENT: Moist mucous membranes. Nonicteric. No cervical lymphadenopathy. RESPIRATORY: Lungs clear to auscultation bilaterally. No rales, no rhonchi, no wheezes. CARDIOVASCULAR: Heart sounds S1, S2 normal. No murmurs, no gallops, no rubs. GI: Abdomen soft, nontender, nondistended. : No bladder distention. EXTREMITIES: No leg edema. SKIN: Warm. No cyanosis. PSYCHIATRIC: Not agitated, normal mood. LABORATORY DATA: CBC: WBC 7.5, hemoglobin 14.6, hematocrit 44.3, platelets 212. Chemistry panel: Sodium 149, potassium 3.9, chloride 113, bicarb 21, BUN 15, creatinine 1.0, glucose 112, calcium 8.3. Serum osmolality 311. ABG this afternoon, pH 7.26, pCO2 37. Urine studies this afternoon, urine osmolality 337, urine sodium 146, urine potassium 14.5. Chest x-ray: Image reviewed showing lungs clear. ASSESSMENT AND PLAN: 1. Ibuprofen overdose can explain the patient's increased anion gap, metabolic acidosis as well as severe polyuria. The patient currently with urine output of approximately 400 mL/hour; is reflective of why serum sodium is increasing. 2. Acidosis relatively mild, but being treated with bicarb drip for now. 3. Management at this point is supportive. We will match urine output with half normal saline to avoid volume depletion and further hypernatremia. 4. We will continue bicarb drip at lower rate of 100 mL/hour. 5. If the patient can tolerate p.o. intake, should encourage p.o. water intake. 6. Recommend Psychiatry assessment. Thank you for this referral. We will be following up closely. Brando Dangelo MD
--- NOTE | 2018-07-26 11:36 | CARD ---
APPROVED REPORT Date of service: 07/26/2018 EKG Measurement Heart [id number] <Conclusion> Sinus rhythm with short MO ST abnormality, possible digitalis effect Abnormal ECG
--- NOTE | 2018-07-26 12:05 | CP.PCM.PN ---
<Oz Weir - Last Filed: 07/26/18 13:36> Subjective - Date & Time of Evaluation Date of Evaluation: 07/26/18 Time of Evaluation: 12:04 - Subjective Subjective: Pt seen and examined in ICU, pt no longer intubated, breathing with nasal canula. Pt reluctant to answer questions. Objective - Vital Signs/Intake and Output Vital Signs (last 24 hours): Temp Pulse Resp BP Pulse Ox 98 F 85 28 H 128/67 100 07/26/18 06:00 07/26/18 07:00 07/26/18 07:21 07/26/18 07:00 07/26/18 07:00 Intake and Output: 07/26/18 07/26/18 06:59 18:59 Intake Total 4800 Output Total 2550 Balance 2250 - Medications Medications: Current Medications Heparin Sodium (Porcine) (Heparin) 5,000 units SC Q8 [facility]; Protocol Last Admin: 07/25/18 23:00 Dose: Not Given Fentanyl Citrate (Fentanyl Citrate/Sodium Chloride 1 Mg/100 Ml) 1,000 mcg in 100 mls @ 2 mls/hr IV .Q24H PRN; Protocol PRN Reason: TITRATE PER MD ORDER Last Titration: 07/25/18 15:03 Dose: 0 mcg/hr, 0 mls/hr Sodium Chloride (Sodium Chloride 0.45%) 1,000 mls @ 300 mls/hr IV .Q3H20M [facility] Last Admin: 07/26/18 08:41 Dose: 300 mls/hr Ondansetron HCl (Zofran Inj) 4 mg IVP Q6H PRN PRN Reason: Nausea/Vomiting Last Admin: 07/25/18 16:33 Dose: 4 mg Pantoprazole Sodium (Protonix Inj) 40 mg IVP DAILY [facility] Last Admin: 07/26/18 10:31 Dose: 40 mg - Labs Labs: 07/26/18 05:15 07/26/18 05:15 - Constitutional Appears: Non-toxic, No Acute Distress - Head Exam Head Exam: ATRAUMATIC, NORMAL INSPECTION, NORMOCEPHALIC - Eye Exam Eye Exam: EOMI - ENT Exam ENT Exam: Mucous Membranes Moist, Normal Exam - Neck Exam Neck Exam: Full ROM - Respiratory Exam Respiratory Exam: Clear to Ausculation Bilateral, NORMAL BREATHING PATTERN. absent: Accessory Muscle Use, Wheezes, Respiratory Distress - Cardiovascular Exam Cardiovascular Exam: REGULAR RHYTHM, +S1, +S2. absent: Diastolic murmur - GI/Abdominal Exam GI & Abdominal Exam: Soft, Normal Bowel Sounds. absent: Rigid, Tenderness - Extremities Exam Extremities Exam: Full ROM, Normal Inspection. absent: Calf Tenderness, Pedal Edema - Neurological Exam Neurological Exam: Alert, Awake, Oriented x3 - Psychiatric Exam Psychiatric exam: Normal Affect, Normal Mood - Skin Skin Exam: Dry, Warm Assessment and Plan - Assessment and Plan (Free Text) Assessment: Pt is a 58 y old female with suicide attempt and possible overdose Plan: Possible Drug overdose - CT head: negative for acute pathology - CT chest, abdomen, pelvis: no acute findings - pharmacy evaluation of pills revealed multiviatmins and unknown white oval pill - poison control contacted - CK: [id number] - spoke with pt and son outside of pt room, they report she has been feeling depressed, and saw a psychiatrist the day before the overdose, they report no medications are kept in the house except advil - pt has a prolonged QT interval, continue to monitor, avoid QT prolonging medications - follow up EKGs - continue to monitor electrolytes - follow up blood, urine and MRSA screen - 1:1 sitter - psych consulted, Dr Mulligan Hypocalcemia - 6.8, corrected to 7.4 - continue to replete as necessary - Nephro consulted, Dr Dangelo Hypokalemia - K 3.0 - replete PRN Ppx SCD protonix Pt seen, examined, assessment and plan discussed with Dr Hawk Weir PGY1 <Eboni Arechiga - Last Filed: 07/26/18 14:29> Objective - Vital Signs/Intake and Output Vital Signs (last 24 hours): Temp Pulse Resp BP Pulse Ox 98 F 85 28 H 128/67 100 07/26/18 06:00 07/26/18 07:00 07/26/18 07:21 07/26/18 07:00 07/26/18 07:00 Intake and Output: 07/26/18 07/26/18 06:59 18:59 Intake Total 4800 Output Total 2550 Balance 2250 - Medications Medications: Current Medications Heparin Sodium (Porcine) (Heparin) 5,000 units SC Q8 [facility]; Protocol Last Admin: 07/26/18 14:20 Dose: 5,000 units Fentanyl Citrate (Fentanyl Citrate/Sodium Chloride 1 Mg/100 Ml) 1,000 mcg in 100 mls @ 2 mls/hr IV .Q24H PRN; Protocol PRN Reason: TITRATE PER MD ORDER Last Titration: 07/25/18 15:03 Dose: 0 mcg/hr, 0 mls/hr Sodium Chloride (Sodium Chloride 0.45%) 1,000 mls @ 300 mls/hr IV .Q3H20M [facility] Last Admin: 07/26/18 08:41 Dose: 300 mls/hr Ondansetron HCl (Zofran Inj) 4 mg IVP Q6H PRN PRN Reason: Nausea/Vomiting Last Admin: 07/25/18 16:33 Dose: 4 mg Pantoprazole Sodium (Protonix Inj) 40 mg IVP DAILY [facility] Last Admin: 07/26/18 10:31 Dose: 40 mg - Labs Labs: 07/26/18 05:15 07/26/18 05:15 Attending/Attestation - Attestation I have personally seen and examined this patient.: Yes I have fully participated in the care of the patient.: Yes I have reviewed all pertinent clinical information, including history, physical exam and plan: Yes Notes (Text): 07/26/18 14:26 58 year old female with no known past medical history who was found unresponsive at home by the son. Per EMS a note was also found stating, "I love you so much, more than anything, I'm sorry" alone with a ziplock bag with unknown pills at home. She received narcan with minimal response. She was intubated for airway protection. Urine drug screen, alcohol and tylenol level were negative. CT head and CT chest/abdomen/pelvis were also negative for acute findings. Initial EKG showed prolonged QTc. Will repeat EKG today. Patient was extubated yesterday afternoon. This morning she is comfortable. Patient is evasive and reluctant to provide any more information. Family at bedside (son and ) state patient was taking ibuprofen for pain. She is on 1:1 observation. She will be seen by psychiatrist. Will replete and repeat lytes (potassium). Nephrology is following for metabolic acidosis seen on blood gas. She was started on sodium bicarbonate with improvement of acidosis. Will follow up with nephrology recommendations. Eboni Arechiga MD Hospitalist.
[2018-07-26] MEDS ORDERED: Sodium Chloride 0.45% 1,000 ML IV SCH ×2 (16:19→19:15)
--- NOTE | 2018-07-26 16:47 | PCM.RRT ---
<Soto Nixon - Last Filed: 07/26/18 16:47> FAGOT HEATER Nurse Assessment - Situation Date: 07/26/18 Time FAGOT HEATER was called: 15:50 FAGOT HEATER Responder Arrival Time: 15:52 FAGOT HEATER Location:: [facility] Room Number: 562 bed 2 [facility] HEATER Reason for Call: Change in Mental Status FAGOT HEATER Called By: RN, Physician - IV IV Inserted during FAGOT HEATER?: No - Respiratory Oxygen Delivery Method: Room Air Received Nebulizer Treatments:: No Was the Patient Ventilated with Bag/Mask 100% O2?: No Secretions Suctioned?: No Was the Patient Intubated?: No Was the Patient Placed on a Ventilator?: No - Diagnostic Test Ordered EKG: Yes Chest X-Ray: No CT Scan: Yes - Stat Labs Ordered FAGOT HEATER Stat Labs Ordered: CBC, BMP, TROPONIN CPR started during FAGOT HEATER?: No - Vital Signs Vital Sign: Rapid Response Vital Sign Blood Pressure 127/72 Pulse Rate 77 Respiratory Rate 19 Temperature 98.3 F Oxygen Saturation 98 - Finger Stick Blood Glucose Finger Stick Blood Glucose: 91 - Time FAGOT HEATER Ended Time FAGOT HEATER Ended: 16:07 - Vital Signs at end of FAGOT HEATER Vital Signs at end of FAGOT HEATER: Rapid Response End Vital Sign Blood Pressure 128/77 Pulse Rate 87 Respiratory Rate 18 Temperature 98.8 F O2 Sat by Pulse Oximetry 97 - Recommendations 5) FAGOT HEATER Level of Care Recommendations: Remain in current setting Notifications: Attending Physician, Family or Designated Caregiver I.Reason for FAGOT HEATER - A) Acute Change in Patient: (Select all that apply): Acute change in mental status - Neurological Status (Select all that apply): Lethargic. absent: Alert, Responsive, Follows Commands - Respiratory Oxygen Delivery Method: Room Air - Constitutional Appears: No Acute Distress - Head Head Exam: ATRAUMATIC, NORMOCEPHALIC - Eyes Eye Exam: PERRL - Respiratory Exam Respiratory Exam: Clear to Ausculation Bilateral. absent: Rales, Rhonchi - Cardiovascular Exam Cardiovascular Exam: REGULAR RHYTHM, +S1, +S2 - GI/Abdominal Exam GI & Abdominal Exam: Soft. absent: Distended, Tenderness - Neurological Exam Neurological Exam: Altered. absent: Alert, Awake - Extremities Exam Extremities Exam: absent: Calf Tenderness, Pedal Edema Plan - Assessment of Findings&Treatment Plan FAGOT HEATER called overhead for change in mental status: Patient was found to be altered. As per nursing staff the patient was answering 1 word answers earlier in the day however now is nonverbal. Patient family at bedside stated that yesterday she was responding with short answers but today she has been less alert. Of note patient is in the hospital for taking unknown amount of pills and on 1:1 for suicidal ideation. VS and PE as the note above Plan: CBC, CMP, Troponin EKG was performed and showed no acute ST changes CT of Head with out contrast ordered Cont 1:1 for suicidal ideation F/U psychiatry recs Cont to monitor for changes <Eboni Arechiga - Last Filed: 07/27/18 08:16> FAGOT HEATER Nurse Assessment - Vital Signs Vital Sign: Rapid Response Vital Sign Blood Pressure 127/72 Pulse Rate 77 Respiratory Rate 19 Temperature 98.3 F Oxygen Saturation 98 - Vital Signs at end of FAGOT HEATER Vital Signs at end of FAGOT HEATER: Rapid Response End Vital Sign Blood Pressure 128/77 Pulse Rate 87 Respiratory Rate 18 Temperature 98.8 F O2 Sat by Pulse Oximetry 97 Attending/Attestation - Attestation I have personally seen and examined this patient.: Yes I have fully participated in the care of the patient.: Yes I have reviewed all pertinent clinical information, including history, physical exam and plan: Yes
--- NOTE | 2018-07-26 16:48 | CT ---
Date of service: 07/26/2018 PROCEDURE: CT HEAD WITHOUT CONTRAST. HISTORY: Change in mental status COMPARISON: 07/25/2018 TECHNIQUE: Axial computed tomography images were obtained through the head/brain without intravenous contrast. Radiation dose: Total exam DLP = 842.29 mGy-cm. This CT exam was performed using one or more of the following dose reduction techniques: Automated exposure control, adjustment of the mA and/or kV according to patient size, and/or use of iterative reconstruction technique. FINDINGS: HEMORRHAGE: No intracranial hemorrhage. BRAIN: No mass effect or edema. No atrophy or chronic microvascular ischemic changes. VENTRICLES: Unremarkable. No hydrocephalus. CALVARIUM: Unremarkable. PARANASAL SINUSES: Unremarkable as visualized. No significant inflammatory changes. MASTOID AIR CELLS: Unremarkable as visualized. No inflammatory changes. OTHER FINDINGS: None. IMPRESSION: Normal CT of the Head. No intracranial mass, hemorrhage or evidence of acute infarct. No interval change.
[2018-07-26 17:29] LABS: BASO # 0.01 K/mm3 (0.0-2.0); BASO % 0.1 % (0.0-3.0); GRAN # 5.85 (1.4-6.5); GRAN % 80.1 % (50.0-68.0); HEMOGLOBIN 13.4 g/dL (12.0-16.0); LYMPH # 0.7 (1.2-3.4); MEAN CELL VOLUME 93.9 fl (80.0-105.0); MEAN CORPUSCULAR HEMOGLOBIN 31.4 pg (25.0-35.0); MEAN CORPUSCULAR HGB CONC 33.4 g/dl (31.0-37.0); MONO # 0.8 (0.1-0.6); MONO % 10.8 % (1.0-6.0); RBC 4.27 10^6/uL (3.5-6.1); RED CELL DISTRIBUTION WIDTH 12.8 % (11.5-14.5); WHITE BLOOD COUNT 7.3 10^3/ul (4.5-11.0)
[2018-07-26 17:51] LABS: TROPONIN I < 0.01 ng/mL
[2018-07-26 17:52] LABS: ALB/GLOB RATIO 1.2 (1.1-1.8); ALBUMIN 3.2 g/dL (3.0-4.8); ALT/SGPT 33 U/L (7-56); AST/SGOT 30 U/L (14-36); BLOOD UREA NITROGEN 15 mg/dL (7-21); CALCIUM 7.2 mg/dL (8.4-10.5); GFR NON-AFRICAN AMERICAN 57
[2018-07-26] MEDS ORDERED: Potassium Chloride 40 mEq/30 ml LIQ UD PO STA (18:19)
[2018-07-26] MEDS ORDERED: Sodium Chloride 0.45% 500ml 500 ML SOL IV SCH (19:00)
--- NOTE | 2018-07-26 23:09 | CP.PCM.PN ---
Subjective - Date & Time of Evaluation Date of Evaluation: 07/26/18 Time of Evaluation: 13:00 - Subjective Subjective: Patient not verbalizing with anyone; not taking PO meds; Objective - Vital Signs/Intake and Output Vital Signs (last 24 hours): Temp Pulse Resp BP Pulse Ox 98.2 F 90 16 126/77 96 07/26/18 22:00 07/26/18 22:00 07/26/18 22:00 07/26/18 22:00 07/26/18 22:00 - Medications Medications: Current Medications Heparin Sodium (Porcine) (Heparin) 5,000 units SC Q8 ELEAZAR; Protocol Last Admin: 07/26/18 21:33 Dose: 5,000 units Potassium Chloride 80 meq/ (Sodium Chloride) 1,040 mls @ 100 mls/hr IV .[id number] [facility] Ondansetron HCl (Zofran Inj) 4 mg IVP Q6H PRN PRN Reason: Nausea/Vomiting Last Admin: 07/25/18 16:33 Dose: 4 mg Pantoprazole Sodium (Protonix Inj) 40 mg IVP DAILY [facility] Last Admin: 07/26/18 10:31 Dose: 40 mg - Labs Labs: 07/26/18 17:25 07/26/18 17:25 - Constitutional Appears: Non-toxic, No Acute Distress - Eye Exam Eye Exam: absent: Scleral icterus - ENT Exam ENT Exam: Mucous Membranes Moist - Respiratory Exam Respiratory Exam: Clear to Ausculation Bilateral. absent: Respiratory Distress - Cardiovascular Exam Cardiovascular Exam: RRR, +S1, +S2 - GI/Abdominal Exam GI & Abdominal Exam: Soft. absent: Distended, Tenderness - Extremities Exam Additional comments: no leg edema; - Neurological Exam Neurological Exam: Alert, Awake - Psychiatric Exam Psychiatric exam: Normal Mood. absent: Agitated - Skin Skin Exam: Warm. absent: Cyanosis Assessment and Plan (1) Overdose Assessment & Plan: Ibuprofen overdose with ensuing metabolic acidosis and marked polyuria, both of which are improved; hypokalemia due to renal wasting; patient not taking any PO meds; -stopping bicarb drip and decreasing 1/2NS to 100 cc/hr; -adding 80 meq/L KCl to IVF; -maintain collado to document I/O; -f/u with psych; Status: Acute (2) Electrolyte imbalance Status: Acute (3) Polyuria Status: Acute
[2018-07-27 00:38] LABS: BLOOD UREA NITROGEN 15 mg/dL (7-21); CALCIUM 7.9 mg/dL (8.4-10.5); GFR NON-AFRICAN AMERICAN > 60
--- NOTE | 2018-07-27 00:42 | CON ---
DATE: 07/26/2018 HISTORY OF PRESENT ILLNESS: In short, the patient is 58-year-old female, [place] descent. The patient was admitted to ICU for possible suicidal attempt. The patient was found by her son and her very drowsy with the note saying, "I love you so much more than anything. I am sorry." There is a zip lock of unknown pill was found in the house. The patient recently was seen by psychologist. The patient presented to be lethargic, was not able to breathe by herself. The patient was intubated, successfully extubated. Psych consult was called for evaluation of possible status post suicidal attempt and depression. This lyric writer attempted to speak to the patient. The patient requested to be interviewed privately. When this lyric writer stayed with the patient alone, the patient refused to talk, closed her eyes, and was not responding to any of this lyric writer's questions. The patient's family is waiting outside of her room, approach this lyric writer. The patient's son, Eliseo, as well as the patient's , Pretty, reported that recently the patient was feeling that she was punished by God because a lot of bad things were happening with the family, majority of the problems were related to the financial situation. The patient was not praying to god that often and that is why the patient was feeling that she was punished for that. Prior to coming to the hospital, everything was fine. The patient went to see a psychologist, but family does not know what was the outcome from that visit. The patient never verbalized that she wanted to kill herself, but was stressed out about social problems. The patient went to sleep, and at the morning time, when her son tried to wake the patient up, the patient was deeply lethargic, seems to be overdosed on medication, but son is not sure. The patient was trying to talk, but was not able to talk. As per family, the patient does not have history of mental illness. The patient does not have history of suicidal attempt. The patient does not have history of being admitted to the psychiatric inpatient unit. VITAL SIGNS: Reviewed. Temperature 98, pulse is 87, respiration is 28, oxygen saturation is 100. MEDICATIONS: Reviewed. The patient is on heparin, Zofran, Protonix, sodium chloride. LABORATORY DATA: Labs reviewed. Toxicology is negative for any substances. Microbiology, has no growth in blood culture. MENTAL STATUS EXAMINATION: The patient presented to be in a catatonic stage, was opening her eyes, but closed and refused to talk. This lyric writer was not able to assess mood, thought process, thought content, but obviously, the patient is in distress and requires further hospitalization and observation. Insight and judgment seems to be very limited. Impulses are well controlled so far. IMPRESSION: Rule out major depressive disorder, rule out psychosis. PLAN: Considering the fact that the patient wrote good-bye letter to the family and possible overdose, it is mayes to continue one-to-one observation. This lyric writer will come back and talk to the patient further. If the patient will be refusing to take medications and talk, we will initiate [facility] screening process. Meanwhile, the patient is not cleared by this lyric writer, requires further evaluation and stabilization. Discussed with Dr. Arechiga. Thank you very much for letting me participate in care of your patient. Ese Ferrara MD
[2018-07-27 08:22] LABS: BASO # 0.01 K/mm3 (0.0-2.0); BASO % 0.1 % (0.0-3.0); GRAN # 5.04 (1.4-6.5); GRAN % 74.1 % (50.0-68.0); HEMOGLOBIN 14.4 g/dL (12.0-16.0); LYMPH # 1.3 (1.2-3.4); LYMPH % 18.8 % (22.0-35.0); MEAN CELL VOLUME 94.3 fl (80.0-105.0); MEAN CORPUSCULAR HEMOGLOBIN 31.4 pg (25.0-35.0); MEAN CORPUSCULAR HGB CONC 33.3 g/dl (31.0-37.0); MEAN PLATELET VOLUME 9.7 fl (7.0-11.0); MONO # 0.5 (0.1-0.6); RBC 4.59 10^6/uL (3.5-6.1); RED CELL DISTRIBUTION WIDTH 12.7 % (11.5-14.5); WHITE BLOOD COUNT 6.8 10^3/ul (4.5-11.0)
[2018-07-27 09:04] LABS: ALB/GLOB RATIO 1.2 (1.1-1.8); ALBUMIN 3.5 g/dL (3.0-4.8); ALT/SGPT 29 U/L (7-56); AST/SGOT 29 U/L (14-36); BLOOD UREA NITROGEN 15 mg/dL (7-21); CALCIUM 8.9 mg/dL (8.4-10.5); GFR NON-AFRICAN AMERICAN > 60
--- NOTE | 2018-07-27 12:35 | CP.PCM.CON ---
History of Present Illness - History of Present Illness History of Present Illness: Neurology Consultation Note: Mrs. Alexander is a 58-year-old woman who was admitted for intentional overdose on unknown medications, in an apparent suicide attempt. She was found unresponsive by family and brought in by EMS. She required intubation for airway protection. Urine toxicology was negative. CT scan of the head did not show any acute findings. After extubation, she continued to be relatively non- verbal. However, this gradually improved. When I saw the patient today, she was fully conversant and pleasant without any evidence of speech difficulty. Review of Systems - Constitutional Constitutional: absent: As Per HPI, Anorexia, Chills, Daytime Sleepiness, Excessive Sweating, Fatigue, Fever, Frequent Falls, Headache, Increased Appetite, Lethargy, Malaise, Night Sweats, Snoring, Sleep Apnea, Weight Gain, Weight Loss, Weakness, Other - EENT Eyes: absent: As Per HPI, Blind Spots, Blurred Vision, Change in Vision, Decreased Night Vision, Diplopia, Discharge, Dry Eye, Exophthalmos, Floaters, Irritation, Itchy Eyes, Loss of Peripheral Vision, Pain, Photophobia, Requires Corrective Lenses, Sees Flashes, Spots in Vision, Tunnel Vision, Other Visual Disturbances, Loss of Vision, Other Ears: absent: As Per HPI, Decreased Hearing, Ear Discharge, Ear Pain, Tinnitus, Abnormal Hearing, Disequilibrium, Dizziness, Other Nose/Mouth/Throat: absent: As Per HPI, Epistaxis, Nasal Congestion, Nasal Discharge, Nasal Obstruction, Nasal Trauma, Nose Pain, Post Nasal Drip, Sinus Pain, Sinus Pressure, Bleeding Gums, Change in Voice, Dental Pain, Dry Mouth, Dysphagia, Halitosis, Hoarsness, Lip Swelling, Mouth Lesions, Mouth Pain, Odynophagia, Sore Throat, Throat Swelling, Tongue Swelling, Facial Pain, Neck Pain, Neck Mass, Other - Cardiovascular Cardiovascular: absent: As Per HPI, Acrocyanosis, Chest Pain, Chest Pain at Re st, Chest Pain with Activity, Claudication, Diaphoresis, Dyspnea, Dyspnea on Exertion, Edema, Irregular Heart Rhythm, Pain Radiating to Arm/Neck/Jaw, Leg Edema, Leg Ulcers, Lightheadedness, Orthopnea, Palpitations, Paroxysmal Nocturnal Dyspnea, Pedal Edema, Radiating Pain, Rapid Heart Rate, Slow Heart Rate, Syncope, Other - Respiratory Respiratory: absent: As Per HPI, Cough, Dyspnea, Hemoptysis, Dyspnea on Exertion, Wheezing, Snoring, Stridor, Pain on Inspiration, Chest Congestion, Excessive Mucous Production, Change in Mucous Color, Pain with Coughing, Other - Gastrointestinal Gastrointestinal: absent: As Per HPI, Abdominal Pain, Belching, Bloating, Change in Bowel Habits, Change in Stool Character, Coffee Ground Emesis, Constipation, Cramping, Diarrhea, Dyspepsia, Dysphagia, Early Satiety, Excessive Flatus, Fecal Incontinence, Heartburn, Hematemesis, Hematochezia, Loose Stools, Melena, Nausea, Odynophagia, Temesmus, Vomiting, Other - Genitourinary Genitourinary: absent: As Per HPI, Change in Urinary Stream, Difficulty Urinating, Dysuria, Flank Pain, Hematuria, Pyuria, Nocturia, Urinary Incontinence, Urinary Frequency, Urinary Hesitance, Urinary Urgency, Voiding F req/Small Amts, Freq UTI, Hx Renal/Bladder Calculi, Hx /Renal Surgery, Bladder Distension, Other - Musculoskeletal Musculoskeletal: absent: As Per HPI, Abnormal Gait, Arthralgias, Atrophy, Back Pain, Deformity, Joint Swelling, Limited Range of Motion, Loss of Height, Muscle Cramps, Muscle Weakness, Myalgias, Neck Pain, Numbness, Radiating Pain into Limb, Stiffness, Tingling, Other - Integumentary Integumentary: absent: As Per HPI, Acne, Alopecia, Bleeding Lesions, Change in Hair, Change in Nails, Change in Pigmentation, Changing Lesions, Dry Skin, Erythema, Furuncle, Hirsutism, Lesions, New Lesions, Non-Healing Lesions, Photosensitivity, Pruritus, Rash, Skin Pain, Skin Ulcer, Sores, Striae, Swelling, Unusual Bruising, Wounds, Jaundice, Other - Neurological Neurological: As Per HPI - Psychiatric Psychiatric: As Per HPI Past Patient History - Past Social History Smoking Status: Never Smoked - CARDIAC Hx Cardiac Disorders: No - PULMONARY Hx Respiratory Disorders: No - NEUROLOGICAL Hx Neurological Disorder: No - HEENT Hx HEENT Problems: No - RENAL Hx Chronic Kidney Disease: No - ENDOCRINE/METABOLIC Hx Endocrine Disorders: No - HEMATOLOGICAL/ONCOLOGICAL Hx Blood Disorders: No - INTEGUMENTARY Hx Dermatological Problems: No - MUSCULOSKELETAL/RHEUMATOLOGICAL Hx Falls: No - GASTROINTESTINAL Hx Gastrointestinal Disorders: No - GENITOURINARY/GYNECOLOGICAL Hx Genitourinary Disorders: Yes Other/Comment: PAIN UPON URINATION FOR 2 YRS ON AND OFF. - PSYCHIATRIC Hx Substance Use: No - SURGICAL HISTORY Hx Surgeries: No - ANESTHESIA Hx Anesthesia: No Meds Allergies/Adverse Reactions: Allergies Allergy/AdvReac Type Severity Reaction Status Date / Time Unobtainable Allergy Verified 07/25/18 15:34 - Medications Medications: Current Medications Heparin Sodium (Porcine) (Heparin) 5,000 units SC Q8 ELEAZAR; Protocol Last Admin: 07/27/18 06:14 Dose: 5,000 units Potassium Chloride 40 meq/ (Sodium Chloride) 1,020 mls @ 100 mls/hr IV .[id number] [facility] Lorazepam (Ativan) 1 mg IV TID E[facility]; Protocol Ondansetron HCl (Zofran Inj) 4 mg IVP Q6H PRN PRN Reason: Nausea/Vomiting Last Admin: 07/25/18 16:33 Dose: 4 mg Pantoprazole Sodium (Protonix Inj) 40 mg IVP DAILY [facility] Last Admin: 07/27/18 09:12 Dose: 40 mg Ziprasidone (Geodon Cap) 20 mg PO Q6H PRN; Protocol PRN Reason: psychosis/agitation Ziprasidone (Geodon Inj) 20 mg IM Q6H PRN; Protocol PRN Reason: severe agitaiton/psychosis Physical Exam - Constitutional Appears: Well - Head Exam Head Exam: ATRAUMATIC, NORMAL INSPECTION, NORMOCEPHALIC - Eye Exam Eye Exam: EOMI, Normal appearance, PERRL - ENT Exam ENT Exam: Mucous Membranes Moist, Normal Exam - Neck Exam Neck exam: Positive for: Normal Inspection - Respiratory Exam Respiratory Exam: Clear to Auscultation Bilateral, NORMAL BREATHING PATTERN - Cardiovascular Exam Cardiovascular Exam: REGULAR RHYTHM, +S1, +S2 - GI/Abdominal Exam GI & Abdominal Exam: Normal Bowel Sounds, Soft. absent: Tenderness - Rectal Exam Rectal Exam: Deferred - Extremities Exam Extremities exam: Positive for: normal inspection - Back Exam Back exam: NORMAL INSPECTION - Neurological Exam Neurological exam: Alert, CN II-XII Intact, Normal Gait, Oriented x3, Reflexes Normal - Psychiatric Exam Psychiatric exam: Depressed, Flat Affect - Skin Skin Exam: Dry, Intact, Normal Color, Warm Results - Vital Signs Recent Vital Signs: Last Vital Signs Temp 97.9 F 07/27/18 06:00 Pulse 90 07/27/18 06:00 Resp 20 07/27/18 06:00 BP 140/83 07/27/18 06:00 Pulse Ox 97 07/27/18 06:00 - Labs Result Diagrams: 07/27/18 07:00 07/27/18 07:00 Labs: Laboratory Results - last 24 hr 07/25/18 07/26/18 07/26/18 16:31 05:15 15:52 WBC RBC Hgb Hct MCV MCH MCHC RDW Plt Count MPV Gran % Lymph % (Auto) [place] % (Auto) Eos % (Auto) Baso % (Auto) Gran # Lymph # (Auto) [place] # (Auto) Eos # (Auto) Baso # (Auto) Sodium Potassium Chloride Carbon Dioxide Anion Gap BUN Creatinine Est GFR ( Amer) Est GFR (Non-Af Amer) POC Glucose (mg/dL) 91 Random Glucose Hemoglobin A1c 5.7 Calcium Phosphorus Magnesium Total Bilirubin AST ALT Alkaline Phosphatase Troponin I Total Protein Albumin Globulin Albumin/Globulin Ratio Urine Chloride 125 07/26/18 07/26/18 07/27/18 17:25 17:25 00:10 WBC 7.3 RBC 4.27 Hgb 13.4 Hct 40.1 MCV 93.9 MCH 31.4 MCHC 33.4 RDW 12.8 Plt Count 202 MPV 9.0 Gran % 80.1 H Lymph % (Auto) 9.0 L [place] % (Auto) 10.8 H Eos % (Auto) 0.0 L Baso % (Auto) 0.1 Gran # 5.85 Lymph # (Auto) 0.7 L [place] # (Auto) 0.8 H Eos # (Auto) 0.0 Baso # (Auto) 0.01 Sodium 141 142 Potassium 2.8 L* 3.0 L Chloride 109 H 111 H Carbon Dioxide 25 25 Anion Gap 11 9 L BUN 15 15 Creatinine 1.0 0.9 Est GFR ( Amer) > 60 > 60 Est GFR (Non-Af Amer) 57 > 60 POC Glucose (mg/dL) Random Glucose 108 101 Hemoglobin A1c Calcium 7.2 L 7.9 L Phosphorus 3.5 Magnesium 2.0 Total Bilirubin 0.6 AST 30 ALT 33 Alkaline Phosphatase 56 Troponin I < 0.01 Total Protein 6.0 Albumin 3.2 Globulin 2.8 Albumin/Globulin Ratio 1.2 Urine Chloride 07/27/18 07/27/18 07:00 07:00 WBC 6.8 RBC 4.59 Hgb 14.4 Hct 43.3 MCV 94.3 MCH 31.4 MCHC 33.3 RDW 12.7 Plt Count 223 MPV 9.7 Gran % 74.1 H Lymph % (Auto) 18.8 L [place] % (Auto) 7.0 H Eos % (Auto) 0.0 L Baso % (Auto) 0.1 Gran # 5.04 Lymph # (Auto) 1.3 [place] # (Auto) 0.5 Eos # (Auto) 0.0 Baso # (Auto) 0.01 Sodium 145 Potassium 3.6 Chloride 111 H Carbon Dioxide 26 Anion Gap 12 BUN 15 Creatinine 0.9 Est GFR ( Amer) > 60 Est GFR (Non-Af Amer) > 60 POC Glucose (mg/dL) Random Glucose 90 Hemoglobin A1c Calcium 8.9 Phosphorus 2.6 Magnesium 2.6 H Total Bilirubin 0.5 AST 29 ALT 29 Alkaline Phosphatase 65 Troponin I Total Protein 6.4 Albumin 3.5 Globulin 2.9 Albumin/Globulin Ratio 1.2 Urine Chloride Assessment & Plan (1) Overdose Assessment and Plan: The patient appears to be recovering well and has no focal neurological deficits. There are no further recommendations from a neurological perspective. Thank you for the consultation. Status: Acute
[2018-07-27] MEDS: Potassium Chloride 40 MEQ in Sodium Chloride 0.45% 1,000 ML IV SCH ×2 (12:56→23:38)
--- NOTE | 2018-07-27 13:37 | CP.PCM.PN ---
<Oz Weir - Last Filed: 07/27/18 14:23> Subjective - Date & Time of Evaluation Date of Evaluation: 07/27/18 Time of Evaluation: 13:34 - Subjective Subjective: Pt seen and examined this morning. Pt will only answer questions with nodding/ shaking her head. Will not give verbal answers in the morning. Pt given ativan, in the afternoon, pt able to answer questions and much more alter. Objective - Vital Signs/Intake and Output Vital Signs (last 24 hours): Temp Pulse Resp BP Pulse Ox 97.9 F 90 20 140/83 97 07/27/18 06:00 07/27/18 06:00 07/27/18 06:00 07/27/18 06:00 07/27/18 06:00 Intake and Output: 07/27/18 07/27/18 06:59 18:59 Intake Total 1500 Output Total 1100 Balance 400 - Medications Medications: Current Medications Heparin Sodium (Porcine) (Heparin) 5,000 units SC Q8 [facility]; Protocol Last Admin: 07/27/18 06:14 Dose: 5,000 units Potassium Chloride 40 meq/ (Sodium Chloride) 1,020 mls @ 100 mls/hr IV .[id number] [facility] Last Admin: 07/27/18 12:56 Dose: 100 mls/hr Lorazepam (Ativan) 1 mg IV TID [facility]LEAZ[facility]; Protocol Ondansetron HCl (Zofran Inj) 4 mg IVP Q6H PRN PRN Reason: Nausea/Vomiting Last Admin: 07/25/18 16:33 Dose: 4 mg Pantoprazole Sodium (Protonix Inj) 40 mg IVP DAILY [facility] Last Admin: 07/27/18 09:12 Dose: 40 mg Ziprasidone (Geodon Cap) 20 mg PO Q6H PRN; Protocol PRN Reason: psychosis/agitation Ziprasidone (Geodon Inj) 20 mg IM Q6H PRN; Protocol PRN Reason: severe agitaiton/psychosis - Labs Labs: 07/27/18 07:00 07/27/18 07:00 - Constitutional Appears: Non-toxic, No Acute Distress - Head Exam Head Exam: ATRAUMATIC, NORMAL INSPECTION, NORMOCEPHALIC - Eye Exam Eye Exam: EOMI - Neck Exam Neck Exam: Full ROM - Respiratory Exam Respiratory Exam: Clear to Ausculation Bilateral, NORMAL BREATHING PATTERN. absent: Accessory Muscle Use, Wheezes, Respiratory Distress - Cardiovascular Exam Cardiovascular Exam: RRR, +S1, +S2. absent: Diastolic murmur, Murmur - GI/Abdominal Exam GI & Abdominal Exam: Soft, Normal Bowel Sounds. absent: Distended, Tenderness - Extremities Exam Extremities Exam: Full ROM. absent: Pedal Edema - Neurological Exam Neurological Exam: Awake - Psychiatric Exam Psychiatric exam: Flat Affect. absent: Normal Affect, Normal Mood Additional comments: earlier today pt would only answer questions with head nodding/shaking. She was given ativan per psyc, and pt is now much more alert, answering questions with much more readily - Skin Skin Exam: Dry, Normal Color, Warm Assessment and Plan - Assessment and Plan (Free Text) Assessment: Pt is a 58 yo female with no significant PMH who presents after being found by her son after a suicide attempt and overdose from an unknown white oval tablet Plan: Possible Drug overdose - CT head: negative for acute pathology - CT chest, abdomen, pelvis: no acute findings - pharmacy evaluation of pills revealed multiviatmins and unknown white oval pill - poison control contacted - CK: 163 - spoke with pt and son outside of pt room, they report she has been feeling depressed, and saw a psychiatrist the day before the overdose, they report no medications are kept in the house except Advil - pt has a prolonged QT interval, continue to monitor, avoid QT prolonging medications, tending down - continue to monitor electrolytes - blood culture: No growth 48 hours - MRSA screen undetectable - 1:1 sitter - psych consulted, Dr Mulligan Questionable UTI - urine cultures: Klebsiella - started ceftriaxone 1 gram daily Hypocalcemia - improving to 8.9, albumin 3.5 - continue to replete as necessary - Nephro consulted, Dr Dangelo Hypokalemia - K 3.6 - replete PRN Ppx - SCD - protonix Pt seen, examined, assessment and plan discussed with Dr Hawk Weir PGY1 <Eboni Arechiga - Last Filed: 07/27/18 14:42> Objective - Vital Signs/Intake and Output Vital Signs (last 24 hours): Temp Pulse Resp BP Pulse Ox 97.9 F 90 20 140/83 97 07/27/18 06:00 07/27/18 06:00 07/27/18 06:00 07/27/18 06:00 07/27/18 06:00 Intake and Output: 07/27/18 07/27/18 06:59 18:59 Intake Total 1500 Output Total 1100 Balance 400 - Medications Medications: Current Medications Heparin Sodium (Porcine) (Heparin) 5,000 units SC Q8 [facility]; Protocol Last Admin: 07/27/18 06:14 Dose: 5,000 units Potassium Chloride 40 meq/ (Sodium Chloride) 1,020 mls @ 100 mls/hr IV .[id number] [facility] Last Admin: 07/27/18 12:56 Dose: 100 mls/hr Ceftriaxone Sodium (Rocephin 1 Gram Ivpb) 1 gm in 100 mls @ 100 mls/hr IVPB DAILY [facility]; Protocol Lorazepam (Ativan) 1 mg IV TID [facility]; Protocol Ondansetron HCl (Zofran Inj) 4 mg IVP Q6H PRN PRN Reason: Nausea/Vomiting Last Admin: 07/25/18 16:33 Dose: 4 mg Pantoprazole Sodium (Protonix Inj) 40 mg IVP DAILY [facility] Last Admin: 07/27/18 09:12 Dose: 40 mg Ziprasidone (Geodon Cap) 20 mg PO Q6H PRN; Protocol PRN Reason: psychosis/agitation Ziprasidone (Geodon Inj) 20 mg IM Q6H PRN; Protocol PRN Reason: severe agitaiton/psychosis - Labs Labs: 07/27/18 07:00 07/27/18 07:00 Attending/Attestation - Attestation I have personally seen and examined this patient.: Yes I have fully participated in the care of the patient.: Yes I have reviewed all pertinent clinical information, including history, physical exam and plan: Yes Notes (Text): 07/27/18 14:37 58 year old female with no known past medical history who was found unresponsive at home by the son. Per EMS a note was also found stating, "I love you so much, more than anything, I'm sorry" alone with a ziplock bag with unknown pills at home. She received narcan with minimal response. She was intubated for airway protection initially but later extubated. Urine drug screen, alcohol and tylenol level were negative. CT head and CT chest/abdomen/pelvis were also negative for acute findings. Initial EKG showed prolonged QTc. Serial EKGs showed improvement of QTc. Yesterday afternoon she had [employer] for decreased responsiveness. Repeat CT head is negative. Neurology evaluation was requested. Psychiatry is following. This morning patient is alert, responds to questions with nodding and shaking her head. She does not verbally respond to questions, follows some commands. Soft speech with poor eye contact. ?Catatonic state. Psychiatry is following and added ativan. UCx came back Klebsiella Pneumonia and she is started on rocephin. Will continue to monitor closely. Family is at bedside and updated on plan of care. Eboni Arechiga MD Hospitalist.
--- NOTE | 2018-07-27 14:07 | PN ---
DATE: 07/27/2018 SUBJECTIVE: In short, the patient is 58-year-old female was admitted on the medical site ICU, status post questionable overdose on medication. The patient wrote good-bye note for her family. This sql report writer attempted to speak to the patient yesterday in ICU. The patient was staring at this sql report writer and not able to talk. Collateral information was obtained from the patient's family which was next to the patient. As per family, the patient was more withdrawn lately. The patient was feeling that God is punishing her, but no acute psychosis. No acute depression. Overnight, the patient was downgraded to the fifth floor. At the time of arrival, the patient was unresponsive. Rapid Response was called. Eventually, the patient woke up. Today, the patient presented in catatonic state. The patient was not able to talk, just stares at this sql report writer and sips orange juice. The patient seems to be either scared or paranoid. This sql report writer advised nursing staff to give stat dose of Ativan IV push and give this sql report writer call back. Later on, nurse reported that the patient was able to talk, but refused for this sql report writer evaluation, but overall, the patient was more responsive and the patient was able to provide full sentences. Vital signs are stable. Temperature 97.9, pulse is 90, blood pressure 140/83, respirations 20, oxygen saturation is 97. Medications reviewed. The patient is on Ativan. The patient is on heparin. This sql report writer would start Ativan 1 mg IV push three times a day, Zofran, Protonix, potassium chloride. This sql report writer also start p.o. and IM Geodon in case of agitation because if catatonia would be improving, this sql report writer cannot exclude that the patient would become agitated in case of psychosis. Labs reviewed. Most recent was from today. Chemistry reviewed. Urinalysis reviewed. Toxicology reviewed. MENTAL STATUS EXAM: The patient presented to be in catatonic stage, stares at this sql report writer, not talking, just sipping orange juice in front of this sql report writer. The patient presented to be guarded and paranoid and scared. Insight and judgment seems to be limited. Impulses are unpredictable. IMPRESSION: Most likely, the patient was psychotic, rule out major depressive disorder with psychosis. At present moment, the patient is catatonic. The patient responded very well on Ativan, started to talk, but refused to talk to this sql report writer PLAN: Ativan IV push was started three times a day, 1 mg. Also started Geodon p.o. and IM in case of agitation. We will reevaluate the patient tomorrow. Most likely, the patient requires further evaluation and stabilization on Psychiatric Inpatient Unit. If the patient would refuse to sign in, we will call [facility] for screening. Thank you very much for letting me participate in the care of your patient. Should you have any questions, give me a call back. Ese Ferrara MD
--- NOTE | 2018-07-27 15:27 | CARD ---
APPROVED REPORT Date of service: 07/26/2018 EKG Measurement Heart [id number] <Conclusion> Normal sinus rhythm Nonspecific ST abnormality Abnormal ECG
[2018-07-27] MEDS: cefTRIAXone 1 gm 1 GM/100 ML BAG IVPB SCH (15:36)
[2018-07-28 07:44] LABS: BASO # 0.01 K/mm3 (0.0-2.0); BASO % 0.2 % (0.0-3.0); EOS % 0.7 % (1.5-5.0); GRAN # 4.03 (1.4-6.5); GRAN % 68.3 % (50.0-68.0); LYMPH # 1.4 (1.2-3.4); LYMPH % 23.3 % (22.0-35.0); MEAN CELL VOLUME 93.7 fl (80.0-105.0); MEAN CORPUSCULAR HEMOGLOBIN 31.3 pg (25.0-35.0); MEAN CORPUSCULAR HGB CONC 33.4 g/dl (31.0-37.0); MEAN PLATELET VOLUME 8.8 fl (7.0-11.0); MONO # 0.4 (0.1-0.6); MONO % 7.5 % (1.0-6.0); RBC 4.15 10^6/uL (3.5-6.1); RED CELL DISTRIBUTION WIDTH 12.5 % (11.5-14.5); WHITE BLOOD COUNT 5.9 10^3/ul (4.5-11.0)
[2018-07-28 07:54] LABS: ALB/GLOB RATIO 1.2 (1.1-1.8); ALBUMIN 3.4 g/dL (3.0-4.8); ALT/SGPT 28 U/L (7-56); AST/SGOT 24 U/L (14-36); BLOOD UREA NITROGEN 15 mg/dL (7-21); CALCIUM 8.9 mg/dL (8.4-10.5); GFR NON-AFRICAN AMERICAN > 60
[2018-07-28 08:14] VITALS: RESP 20
[2018-07-28] MEDS: cefTRIAXone 1 gm 1 GM/100 ML BAG IVPB SCH (09:14)
[2018-07-28] MEDS ORDERED: Sodium Chloride 0.45% 1,000 ML IV SCH (09:49)
[2018-07-28] MEDS ORDERED: Potassium Phosphate 15 MMOLE in Dextrose 5% In Water 250 ML IVPB ONE (09:49)
[2018-07-28] MEDS ORDERED: Potassium Phosphate 15 MMOLE in Sodium Chloride 0.9% 250 ML IVPB ONE (10:00)
[2018-07-28] MEDS ORDERED: cefTRIAXone 1 gm 1 GM/100 ML BAG IVPB SCH (10:00)
--- NOTE | 2018-07-28 12:34 | CP.PCM.PN ---
Subjective - Date & Time of Evaluation Date of Evaluation: 07/28/18 Time of Evaluation: 12:32 - Subjective Subjective: Karan Piper DO, PGY-2: Nephrology Progress Note for Dr. Dangelo Patient seen and examined at bedside. Patient reports that she is doing well today. No complaints, states she took shower and slept well last night. Objective - Vital Signs/Intake and Output Vital Signs (last 24 hours): Temp Pulse Resp BP Pulse Ox 98.1 F 64 20 128/75 98 07/28/18 06:00 07/28/18 06:00 07/28/18 06:00 07/28/18 06:00 07/28/18 06:00 - Medications Medications: Current Medications Cefpodoxime Proxetil (Vantin) 200 mg PO Q12 [facility] Stop: 08/01/18 14:46 Heparin Sodium (Porcine) (Heparin) 5,000 units SC Q8 [facility]; Protocol Last Admin: 07/28/18 06:29 Dose: 5,000 units Sodium Chloride (Sodium Chloride 0.45%) 1,000 mls @ 100 mls/hr IV .Q10H [facility] Last Admin: 07/28/18 10:43 Dose: 100 mls/hr Potassium Phosphate 15 mmole/ (Sodium Chloride) 255 mls @ 42.5 mls/hr IVPB ONCE ONE Stop: 07/28/18 15:59 Last Admin: 07/28/18 10:55 Dose: 42.5 mls/hr Lorazepam (Ativan) 1 mg IV TID [facility]; Protocol Last Admin: 07/28/18 09:09 Dose: 1 mg Ondansetron HCl (Zofran Inj) 4 mg IVP Q6H PRN PRN Reason: Nausea/Vomiting Last Admin: 07/25/18 16:33 Dose: 4 mg Pantoprazole Sodium (Protonix Ec Tab) 40 mg PO ACB [facility] Ziprasidone (Geodon Cap) 20 mg PO Q6H PRN; Protocol PRN Reason: psychosis/agitation Ziprasidone (Geodon Inj) 20 mg IM Q6H PRN; Protocol PRN Reason: severe agitaiton/psychosis - Labs Labs: 07/28/18 07:00 07/28/18 07:00 - Constitutional Appears: Well, Non-toxic - Head Exam Head Exam: ATRAUMATIC, NORMOCEPHALIC - Eye Exam Eye Exam: EOMI, Normal appearance - ENT Exam ENT Exam: Mucous Membranes Moist - Neck Exam Neck Exam: Normal Inspection - Respiratory Exam Respiratory Exam: Clear to Ausculation Bilateral, NORMAL BREATHING PATTERN. absent: Accessory Muscle Use - Cardiovascular Exam Cardiovascular Exam: RRR, +S1, +S2 - GI/Abdominal Exam GI & Abdominal Exam: Soft, Normal Bowel Sounds - Extremities Exam Extremities Exam: Normal Inspection. absent: Calf Tenderness - Neurological Exam Neurological Exam: Alert, Awake, Oriented x3 - Psychiatric Exam Psychiatric exam: Normal Affect, Normal Mood - Skin Skin Exam: Dry, Intact, Normal Color, Warm Assessment and Plan - Assessment and Plan (Free Text) Assessment: 1) Ibuprofen overdose with ensuing metabolic acidosis and marked polyuria, both of which are improved; hypokalemia due to renal wasting; patient not taking any PO meds; -Continue with KPO4 for low -maintain colldao to document I/O; -f/u with psych; Status: Acute (2) Electrolyte imbalance Status: Acute Potassium Phosphate IV (3) Polyuria Status: Acute As always, thank you for allowing us to participate in the care of this patient.
[2018-07-28 16:23] VITALS: BP 126/81; PULSE 92; TEMP 99.4; O2SAT 96
--- NOTE | 2018-07-28 18:45 | PN ---
DATE: 07/28/2018 FOLLOWUP NOTE SUBJECTIVE: Shortly, the patient is a 58-year-old female who was admitted status post altered mental status into ICU, was intubated and extubated questionable overdose on pills. The patient wrote good-bye letter to her family, but it is questionable. Right now, the patient denied. Over the weekend, the patient was in catatonic stage. This life underwriter provided the patient with benzodiazepines, IV push and today, the patient was alert and oriented, able to give history and seems to be a reliable historian. The patient reported that she was overwhelmed with the fact that her neighbor was diagnosed with Alzheimer's dementia and she is progressively worsening. At that time, she is screaming in the middle of the night which affects her sleep. The patient's family confirmed that neighbor is screaming and the patient is not the only one who is hearing that screened. The patient was overwhelmed with the fact that she is very anxious, difficulty to fall asleep and to stay asleep, difficult to perform her choice. Before coming to the hospital, the patient was looking for help from the psychologist and was not prescribed any medication. The patient reported prior to come to the hospital, she was having difficulty to fall asleep and to stay asleep and to have some urinary symptoms and that is why she was not able to sleep. The patient reported that she took extra pills of ibuprofen as well as sleeping medication such as melatonin but she is not aware how many mg she took. The patient does not remember writing good-bye letter to the family. Of note, as per family, the patient never wrote any good-bye letters in the past. The patient reported that she feels constantly anxious and the patient was not able to function and suicidal, attempt cannot be ruled out at this point. The patient is willing to get treatment, willing to start feeling better. At this point, the patient is willing to be on medication. This life underwriter reviewed vital signs. OBJECTIVE: VITAL SIGNS: Seems to be stable. Temperature 98.1, pulse 64, blood pressure 128/75, respirations 20, oxygen saturation is 98. MEDICATIONS: Reviewed. The patient is on Vantin, heparin, Ativan, Zofran, Protonix. The patient is on Protonix. The patient is on potassium. The patient is on sodium chloride. The patient is on Geodon p.o. and IM. Labs reviewed. Blood gas reviewed. Chemistry reviewed. Urinalysis reviewed. Toxicology reviewed. Microbiology reviewed. Klebsiella is positive in the urine that is why the patient is on antibiotics. MENTAL STATUS EXAMINATION: The patient presented to be alert, oriented. The patient is seen to be talkative and in fair eye contact. Mood described as I am willing to get better, I known that I need to have help. Affect was more reactive. Thought process was circumstantial, but no tangentiality. The patient denied hearing voices, denied seeing things. Denied paranoid ideation. The patient does not present to be psychotic, but it is questionable. Insight and judgment seems to be improving. Impulses are well controlled. IMPRESSION: Rule out psychosis, not otherwise specified; rule out major depressive disorder; rule out anxiety disorder. PLAN: We will offer the patient admission, the patient signed consent form for further evaluation and stabilization. Ativan will be continued but p.o. form. Medication for sleep will be given. Sonata 5 mg discussed with the patient, Prozac or Paxil will also initiated. The patient might benefit from the hospitalization because patient is status post overdose on medication. The patient wrote good-bye note, but this life underwriter need to have more time in order to clarify what diagnosis the patient has. Meanwhile, the patient will be transferred. Thank you very much for letting me participate in care of your patient. Should you have any questions give me a call back. Ese Ferrara MD
--- NOTE | 2018-07-28 19:05 | CP.PCM.DIS ---
<Oz Weir - Last Filed: 07/28/18 19:06> Provider - Provider Date of Admission: 07/25/18 11:47 Attending physician: Eboni Arechiga MD Primary care physician: Kaity Steinberg MD Time Spent in preparation of Discharge (in minutes): 45 Diagnosis - Discharge Diagnosis (1) Overdose Status: Acute Priority: High (2) Electrolyte imbalance Status: Acute Priority: High Hospital Course - Lab Results Lab Results: Micro Results 07/25/18 09:45 Blood Blood Culture - Preliminary NO GROWTH AFTER 3 DAYS 07/25/18 09:30 Blood Blood Culture - Preliminary NO GROWTH AFTER 3 DAYS 07/25/18 09:45 Urine,Donis Urine Culture - Final Klebsiella Pneumoniae Ssp Pneu 07/25/18 13:40 Naris MRSA Culture (Admit) - Final MRSA NOT DETECTED Most Recent Lab Values WBC 5.9 10^3/ul (4.5-11.0) 07/28/18 07:00 RBC 4.15 10^6/uL (3.5-6.1) 07/28/18 07:00 Hgb 13.0 g/dL (12.0-16.0) 07/28/18 07:00 Hct 38.9 % (36.0-48.0) 07/28/18 07:00 MCV 93.7 fl (80.0-105.0) 07/28/18 07:00 MCH 31.3 pg (25.0-35.0) 07/28/18 07:00 MCHC 33.4 g/dl (31.0-37.0) 07/28/18 07:00 RDW 12.5 % (11.5-14.5) 07/28/18 07:00 Plt Count 194 10^3/uL (120.0-450.0) 07/28/18 07:00 MPV 8.8 fl (7.0-11.0) 07/28/18 07:00 Gran % 68.3 % (50.0-68.0) H 07/28/18 07:00 Lymph % (Auto) 23.3 % (22.0-35.0) 07/28/18 07:00 Ritchie % (Auto) 7.5 % (1.0-6.0) H 07/28/18 07:00 Eos % (Auto) 0.7 % (1.5-5.0) L 07/28/18 07:00 Baso % (Auto) 0.2 % (0.0-3.0) 07/28/18 07:00 Gran # 4.03 (1.4-6.5) 07/28/18 07:00 Lymph # (Auto) 1.4 (1.2-3.4) 07/28/18 07:00 Ritchie # (Auto) 0.4 (0.1-0.6) 07/28/18 07:00 Eos # (Auto) 0.0 (0.0-0.7) 07/28/18 07:00 Baso # (Auto) 0.01 K/mm3 (0.0-2.0) 07/28/18 07:00 pCO2 34 mm/Hg (35-45) L 07/25/18 22:33 pO2 272.0 mm/Hg (80-100) H 07/25/18 22:33 HCO3 19.7 mmol/L (21-28) L 07/25/18 22:33 ABG pH 7.37 (7.35-7.45) 07/25/18 22:33 ABG Total CO2 20.7 mmol.L (22-28) L 07/25/18 22:33 ABG O2 Saturation 100.5 % (95-98) H 07/25/18 22:33 ABG O2 Content 19.9 ML/dl (15-23) 07/25/18 22:33 ABG Base Excess -4.8 mmol/L (-2.0-3.0) L 07/25/18:33 ABG Hemoglobin 14.0 g/dL (11.7-17.4) 07/25/18:33 ABG Carboxyhemoglobin 1.5 % (0.5-1.5) 07/25/18:33 POC ABG HHb (Measured) -0.5 % (0-5) L 07/25/18 22:33 ABG Methemoglobin 1.1 % (0.0-3.0) 07/25/18 22:33 ABG O2 Capacity 19.8 mL/dl (16-24) 07/25/18 22:33 ABG Potassium 3.8 mmol/L (3.6-5.2) 07/25/18 10:50 VBG pH 7.19 (7.32-7.43) L* 07/25/18 15:45 VBG pCO2 53.0 (40-60) 07/25/18 15:45 VBG HCO3 20.2 mmol/l (21-28) L 07/25/18 15:45 VBG Total CO2 21.8 mmol.L (22-28) L 07/25/18 15:45 VBG O2 Sat (Calc) 81.4 % (40-65) H 07/25/18 15:45 VBG Base Excess -8.3 mmol/L (0.0-2.0) L 07/25/18 15:45 VBG Potassium 3.8 mmol/L (3.6-5.2) 07/25/18 15:45 Hgb O2 Saturation 97.8 % (95.0-98.0) 07/25/18 22:33 Sodium 146.0 mmol/L (132-148) 07/25/18 15:45 Chloride 112.0 mmol/L (98-107) H 07/25/18 15:45 Glucose 109 mg/dl (65-105) H 07/25/18 15:45 Lactate 1.9 mmol/L (0.7-2.1) 07/25/18 15:45 Mechanical Rate 16 07/25/18 10:50 FiO2 60.0 % 07/25/18 22:33 Tidal Volume 400 07/25/18 10:50 PEEP 5 07/25/18 10:50 Sodium 143 mmol/L (132-148) 07/28/18 07:00 Potassium 4.2 mmol/L (3.6-5.0) 07/28/18 07:00 Chloride 109 mmol/L (98-107) H 07/28/18 07:00 Carbon Dioxide 29 mmol/L (21-33) 07/28/18 07:00 Anion Gap 9 (10-20) L 07/28/18 07:00 BUN 15 mg/dL (7-21) 07/28/18 07:00 Creatinine 0.8 mg/dl (0.7-1.2) 07/28/18 07:00 Est GFR ( Amer) > 60 07/28/18 07:00 Est GFR (Non-Af Amer) > 60 07/28/18 07:00 POC Glucose (mg/dL) 91 mg/dL (65-110) 07/26/18 15:52 Random Glucose 109 mg/dL (70-110) 07/28/18 07:00 Hemoglobin A1c 5.7 % (4.2-6.5) 07/26/18 05:15 Serum Osmolality 311 mosm/kg (272-300) H 07/25/18 15:45 Calcium 8.9 mg/dL (8.4-10.5) 07/28/18 07:00 Phosphorus 1.8 mg/dL (2.5-4.5) L 07/28/18 07:00 Magnesium 2.1 mg/dL (1.7-2.2) 07/28/18 07:00 Total Bilirubin 0.5 mg/dL (0.2-1.3) 07/28/18 07:00 AST 24 U/L (14-36) 07/28/18 07:00 ALT 28 U/L (7-56) 07/28/18 07:00 Alkaline Phosphatase 57 U/L (38-126) 07/28/18 07:00 Total Creatine Kinase 163 U/L (35-230) 07/25/18 15:45 Troponin I < 0.01 ng/mL 07/26/18 17:25 Total Protein 6.4 g/dL (5.8-8.3) 07/28/18 07:00 Albumin 3.4 g/dL (3.0-4.8) 07/28/18 07:00 Globulin 3.0 gm/dL 07/28/18 07:00 Albumin/Globulin Ratio 1.2 (1.1-1.8) 07/28/18 07:00 Arterial Blood Potassium 3.8 mmol/L (3.6-5.2) 07/25/18 10:50 Venous Blood Potassium 3.8 mmol/L (3.6-5.2) 07/25/18 15:45 Urine Color Yellow (YELLOW) 07/25/18 09:50 Urine Appearance Clear (CLEAR) 07/25/18 09:50 Urine pH 6.0 (4.7-8.0) 07/25/18 09:50 Ur Specific [place] <= 1.005 (1.005-1.035) 07/25/18 09:50 Urine Protein Negative mg/dL (<30 mg/dL) 07/25/18 09:50 Urine Glucose (UA) Negative mg/dL (NEGATIVE) 07/25/18 09:50 Urine Ketones Negative mg/dL (NEGATIVE) 07/25/18 09:50 Urine Blood Negative (NEGATIVE) 07/25/18 09:50 Urine Nitrate Negative (NEGATIVE) 07/25/18 09:50 Urine Bilirubin Negative (NEGATIVE) 07/25/18 09:50 Urine Urobilinogen 0.2 E.U./dL (<1 E.U./dL) 07/25/18 09:50 Ur Leukocyte Esterase Negative Betzy/uL (NEGATIVE) 07/25/18 09:50 Urine Osmolality 370 mosm/kg (300-1000) 07/25/18 23:40 Ur Random Sodium 127 meq/L 07/25/18 20:00 Ur Random Potassium 24.0 meq/L 07/25/18 23:40 Urine Chloride 125 mmol/L (32-290) 07/25/18 16:31 Salicylates < 1 mg/dL (2.0-20.0) L 07/25/18 09:30 Urine Opiates Screen Negative (NEGATIVE) 07/25/18 09:50 Urine Methadone Screen Negative (NEGATIVE) 07/25/18 09:50 Acetaminophen < 10.0 ug/ml (10.0-20.0) L 07/25/18 09:30 Ur Barbiturates Screen Negative (NEGATIVE) 07/25/18 09:50 Ur Phencyclidine Scrn Negative (NEGATIVE) 07/25/18 09:50 Ur Amphetamines Screen Negative (NEGATIVE) 07/25/18 09:50 U Benzodiazepines Scrn Negative (NEGATIVE) 07/25/18 09:50 U Oth Cocaine Metabols Negative (NEGATIVE) 07/25/18 09:50 U Cannabinoids Screen Negative (NEGATIVE) 07/25/18 09:50 Alcohol, Quantitative < 10 mg/dL (0-10) 07/25/18 09:30 - Hospital Course Hospital Course: Upon Admission Patient is a 58 year old female with no PMH who [place] [facility] [place] being found unresponsive at home by her son and BIBA. Patient received Narcan in the field with little improvement. When son went in to wake her up for work, when he was unable to wake her so he called 911. Per EMS, there was a note at the house stating, "I love you all so much, more than anything, I'm sorry." Patient was given 2mg of Narcan in the field with minimal response. There was a zip lock bag of unknown pills found in the house. Per family, patient has been reporting difficulty with sleep and went to see a psychologist for the first time yesterday. The family does not know what happened at her psychology appointment and does not know if she was prescribed any new medications. Family additionally indicates that patient has been feeling stressed and experiencing increased anxiety though they were unsure what the source of the anxiety was. Family is unsure of where/ how the patient may have obtained the pills as neither of them take any medications. History is limited to family as patient is intubated and not responsive upon interview. A more through history was taken later on admission once pt was AAO x 3 and able to answer questions. Pt states she watched a neighbor develop Alzheimer and feared she might have the disease too. She admits to feeling very stressed and anxious about this and worried her children would have to care for her in that condition and felt it would be better to end her life so she would not be a burden on her family. Hospital Summary Patient is a 58 year old female with no PMH who was admitted to the hospital after an overdose of an unknown substance that was not identified by the kel lindsay. Pt presented with hypocalcemia of 6.8, metabolic acidosis and respiratory acidosis pH: 7.26, pCO2 40, HCO3 17.9. Pt was intubated for respiratory support however was extubated the next day adte r a f/u ABG showed improved acid base status with pH of 7.37, pCO2 34, HCO3 19.7. CT of head, chest, abdomen, and pelvis showed no acute findings. CK level was 163. Following extubation pt was talking and answering questions and then became unresponsive. It was determined she had an episode fo catatonia which was treated with 1mg of Ativan per psychiatric consultation. Pt then recovered and is currently AAO x 3. Neurology was counseled and found no neurological deficits. On day of discharge pt is medically stable and has no acute complaints. Electrolytes are currently balanced. UA showed klebsiella and pt was started on ceftiraxone. She is clinically asymptomatic with no urinary sxs on discharge and abx will be discontinued. Pt currently denies suicidal ideation and understands her condition. Pt is to f/u with psychiatry Discharge Plan Pt is stable for discharge to in pt psyc Pt is to f/u ith PMD Dr. Steinberg within 3-5 days of discharge from ambulatory clinic. Pt should return to hospital if suicidal ideation returns. Pt understands plan as above and agrees. - Date & Time of H&P Date of H&P: 07/28/18 Time of H&P: 05:00 Discharge Exam - Head Exam Head Exam: ATRAUMATIC, NORMOCEPHALIC - Eye Exam Eye Exam: EOMI - ENT Exam ENT Exam: Mucous Membranes Moist - Respiratory Exam Respiratory Exam: NORMAL BREATHING PATTERN, UNREMARKABLE. absent: Wheezes, Respiratory Distress, Stridor - Cardiovascular Exam Cardiovascular Exam: RRR, +S1, +S2. absent: Diastolic murmur, Systolic Murmur - GI/Abdominal Exam GI & Abdominal Exam: Normal Bowel Sounds, Unremarkable - Extremities Exam Extremities exam: full ROM, pedal pulses present - Neurological Exam Neurological exam: Alert, Oriented x3 - Psychiatric Exam Psychiatric exam: Normal Affect, Normal Mood - Skin Skin Exam: Dry, Intact, Warm Discharge Plan - Follow Up Plan Condition: CRITICAL Disposition: DISCHARGE TO PSYCH HOSPITAL Instructions: Depression, Acetaminophen Poisoning, Depression, Adult (DC), Narc otic Overdose Additional Instructions: 1. please follow up with your primary care physician with in 1 week from discharge 2. please follow up with outpatient psychiatrist with in 1 week from discharge 3. please continue the medications which were started while you were in the hospital 4. if your symptoms return or worsen, please go to the nearest emergency department Referrals: Kaity Arnold MD [Primary Care Provider] - <Hardik Lopez - Last Filed: 07/29/18 14:29> Provider - Provider Date of Admission: 07/25/18 11:47 Attending physician: Eboni Arechiga MD Primary care physician: Kaity Steinberg MD Hospital Course - Lab Results Lab Results: Micro Results 07/25/18 09:45 Blood Blood Culture - Preliminary NO GROWTH AFTER 4 DAYS 07/25/18 09:30 Blood Blood Culture - Preliminary NO GROWTH AFTER 4 DAYS 07/25/18 09:45 Urine,Donis Urine Culture - Final Klebsiella Pneumoniae Ssp Pneu 07/25/18 13:40 Naris MRSA Culture (Admit) - Final MRSA NOT DETECTED Most Recent Lab Values WBC 5.9 10^3/ul (4.5-11.0) 07/28/18 07:00 RBC 4.15 10^6/uL (3.5-6.1) 07/28/18 07:00 Hgb 13.0 g/dL (12.0-16.0) 07/28/18 07:00 Hct 38.9 % (36.0-48.0) 07/28/18 07:00 MCV 93.7 fl (80.0-105.0) 07/28/18 07:00 MCH 31.3 pg (25.0-35.0) 07/28/18 07:00 MCHC 33.4 g/dl (31.0-37.0) 07/28/18 07:00 RDW 12.5 % (11.5-14.5) 07/28/18 07:00 Plt Count 194 10^3/uL (120.0-450.0) 07/28/18 07:00 MPV 8.8 fl (7.0-11.0) 07/28/18 07:00 Gran % 68.3 % (50.0-68.0) H 07/28/18 07:00 Lymph % (Auto) 23.3 % (22.0-35.0) 07/28/18 07:00 Ritchie % (Auto) 7.5 % (1.0-6.0) H 07/28/18 07:00 Eos % (Auto) 0.7 % (1.5-5.0) L 07/28/18 07:00 Baso % (Auto) 0.2 % (0.0-3.0) 07/28/18 07:00 Gran # 4.03 (1.4-6.5) 07/28/18 07:00 Lymph # (Auto) 1.4 (1.2-3.4) 07/28/18 07:00 Ritchie # (Auto) 0.4 (0.1-0.6) 07/28/18 07:00 Eos # (Auto) 0.0 (0.0-0.7) 07/28/18 07:00 Baso # (Auto) 0.01 K/mm3 (0.0-2.0) 07/28/18 07:00 pCO2 34 mm/Hg (35-45) L 07/25/18 22:33 pO2 272.0 mm/Hg (80-100) H 07/25/18 22:33 HCO3 19.7 mmol/L (21-28) L 07/25/18 22:33 ABG pH 7.37 (7.35-7.45) 07/25/18 22: ABG Total CO2 20.7 mmol.L (22-28) L 07/25/18 22:33 ABG O2 Saturation 100.5 % (95-98) H 07/25/18 22:33 ABG O2 Content 19.9 ML/dl (15-23) 07/25/18 22: ABG Base Excess -4.8 mmol/L (-2.0-3.0) L 07/25/18 22:33 ABG Hemoglobin 14.0 g/dL (11.7-17.4) 07/25/18 22:33 ABG Carboxyhemoglobin 1.5 % (0.5-1.5) 07/25/18 22:33 POC ABG HHb (Measured) -0.5 % (0-5) L 07/25/18:33 ABG Methemoglobin 1.1 % (0.0-3.0) 07/25/18 22:33 ABG O2 Capacity 19.8 mL/dl (16-24) 07/25/18 22:33 ABG Potassium 3.8 mmol/L (3.6-5.2) 07/25/18 10:50 VBG pH 7.19 (7.32-7.43) L* 07/25/18 15:45 VBG pCO2 53.0 (40-60) 07/25/18 15:45 VBG HCO3 20.2 mmol/l (21-28) L 07/25/18 15:45 VBG Total CO2 21.8 mmol.L (22-28) L 07/25/18 15:45 VBG O2 Sat (Calc) 81.4 % (40-65) H 07/25/18 15:45 VBG Base Excess -8.3 mmol/L (0.0-2.0) L 07/25/18 15:45 VBG Potassium 3.8 mmol/L (3.6-5.2) 07/25/18 15:45 Hgb O2 Saturation 97.8 % (95.0-98.0) 07/25/18 22:33 Sodium 146.0 mmol/L (132-148) 07/25/18 15:45 Chloride 112.0 mmol/L (98-107) H 07/25/18 15:45 Glucose 109 mg/dl (65-105) H 07/25/18 15:45 Lactate 1.9 mmol/L (0.7-2.1) 07/25/18 15:45 Mechanical Rate 16 07/25/18 10:50 FiO2 60.0 % 07/25/18 22:33 Tidal Volume 400 07/25/18 10:50 PEEP 5 07/25/18 10:50 Sodium 143 mmol/L (132-148) 07/28/18 07:00 Potassium 4.2 mmol/L (3.6-5.0) 07/28/18 07:00 Chloride 109 mmol/L (98-107) H 07/28/18 07:00 Carbon Dioxide 29 mmol/L (21-33) 07/28/18 07:00 Anion Gap 9 (10-20) L 07/28/18 07:00 BUN 15 mg/dL (7-21) 07/28/18 07:00 Creatinine 0.8 mg/dl (0.7-1.2) 07/28/18 07:00 Est GFR ( Amer) > 60 07/28/18 07:00 Est GFR (Non-Af Amer) > 60 07/28/18 07:00 POC Glucose (mg/dL) 91 mg/dL (65-110) 07/26/18 15:52 Random Glucose 109 mg/dL (70-110) 07/28/18 07:00 Hemoglobin A1c 5.7 % (4.2-6.5) 07/26/18 05:15 Serum Osmolality 311 mosm/kg (272-300) H 07/25/18 15:45 Calcium 8.9 mg/dL (8.4-10.5) 07/28/18 07:00 Phosphorus 1.8 mg/dL (2.5-4.5) L 07/28/18 07:00 Magnesium 2.1 mg/dL (1.7-2.2) 07/28/18 07:00 Total Bilirubin 0.5 mg/dL (0.2-1.3) 07/28/18 07:00 AST 24 U/L (14-36) 07/28/18 07:00 ALT 28 U/L (7-56) 07/28/18 07:00 Alkaline Phosphatase 57 U/L (38-126) 07/28/18 07:00 Total Creatine Kinase 163 U/L (35-230) 07/25/18 15:45 Troponin I < 0.01 ng/mL 07/26/18 17:25 Total Protein 6.4 g/dL (5.8-8.3) 07/28/18 07:00 Albumin 3.4 g/dL (3.0-4.8) 07/28/18 07:00 Globulin 3.0 gm/dL 07/28/18 07:00 Albumin/Globulin Ratio 1.2 (1.1-1.8) 07/28/18 07:00 Arterial Blood Potassium 3.8 mmol/L (3.6-5.2) 07/25/18 10:50 Venous Blood Potassium 3.8 mmol/L (3.6-5.2) 07/25/18 15:45 Urine Color Yellow (YELLOW) 07/25/18 09:50 Urine Appearance Clear (CLEAR) 07/25/18 09:50 Urine pH 6.0 (4.7-8.0) 07/25/18 09:50 Ur Specific [place] <= 1.005 (1.005-1.035) 07/25/18 09:50 Urine Protein Negative mg/dL (<30 mg/dL) 07/25/18 09:50 Urine Glucose (UA) Negative mg/dL (NEGATIVE) 07/25/18 09:50 Urine Ketones Negative mg/dL (NEGATIVE) 07/25/18 09:50 Urine Blood Negative (NEGATIVE) 07/25/18 09:50 Urine Nitrate Negative (NEGATIVE) 07/25/18 09:50 Urine Bilirubin Negative (NEGATIVE) 07/25/18 09:50 Urine Urobilinogen 0.2 E.U./dL (<1 E.U./dL) 07/25/18 09:50 Ur Leukocyte Esterase Negative Betzy/uL (NEGATIVE) 07/25/18 09:50 Urine Osmolality 370 mosm/kg (300-1000) 07/25/18 23:40 Ur Random Sodium 127 meq/L 07/25/18 20:00 Ur Random Potassium 24.0 meq/L 07/25/18 23:40 Urine Chloride 125 mmol/L (32-290) 07/25/18 16:31 Salicylates < 1 mg/dL (2.0-20.0) L 07/25/18 09:30 Urine Opiates Screen Negative (NEGATIVE) 07/25/18 09:50 Urine Methadone Screen Negative (NEGATIVE) 07/25/18 09:50 Acetaminophen < 10.0 ug/ml (10.0-20.0) L 07/25/18 09:30 Ur Barbiturates Screen Negative (NEGATIVE) 07/25/18 09:50 Ur Phencyclidine Scrn Negative (NEGATIVE) 07/25/18 09:50 Ur Amphetamines Screen Negative (NEGATIVE) 07/25/18 09:50 U Benzodiazepines Scrn Negative (NEGATIVE) 07/25/18 09:50 U Oth Cocaine Metabols Negative (NEGATIVE) 07/25/18 09:50 U Cannabinoids Screen Negative (NEGATIVE) 07/25/18 09:50 Alcohol, Quantitative < 10 mg/dL (0-10) 07/25/18 09:30 Attending/Attestation - Attestation I have personally seen and examined this patient.: Yes I have fully participated in the care of the patient.: Yes I have reviewed all pertinent clinical information, including history, physical exam and plan: Yes Notes (Text): 07/29/18 14:24 Medical record note made by the resident after discussion with my direction and input after the patient was personally seen and examined by me. I have reviewed the chart and agree that the record accurately reflects by personal performance of the history, physical exam, data review, and medical decision-making, in the course for the patient. I have also personally directed the plan of care. 58 year old female with no PMH who was admitted to the hospital after an overdose of an unknown substance was found to be , metabolic acidosis and respiratory acidosis pH: Patient was intubated for respiratory support however was extubated the next day .Metabolic acidosis was resolved. CT of head, chest, abdomen, and pelvis showed no acute findings. Following extubation ,patient was talking and answering questions and then became unresponsive. It was determined she had an episode fo catatonia which was treated with 1mg of Ativan per psychiatric consultation. Pt then recovered and is currently AAO x 3. On day of discharge pt is medically stable and has no acute complaints.She is alert,awake and oriented. Urine cultures grew showed klebsiella, but UA is negative for UTI.Patient is asymptomatic, will discontinue antibiotic. Patient will be discharged to Psychiatry for further management. Management plan was discussed in detail with patient. Education was provided.
[2018-07-29] MEDS ORDERED: Pantoprazole 40 mg EC Tab PO SCH (07:30)
[2018-07-29] MEDS ORDERED: Cefpodoxime (Vantin) 200 mg Tab PO SCH (10:00)
== END 2018-07-28 19:25 | DRG 918 ==
LOC: ED 09:24 → ERH 11:47 → CCU 13:31 → 5RNO 07-26 15:44
PROVIDERS: ADMIT Internal Medicine; ATTEND Internal Medicine
PROC: 5A1935Z Respiratory Ventilation, Less than 24 Consecutive Hours (ICD-10-PCS; principal; 2018-07-25)
PROC: 0BH17EZ Insertion of Endotracheal Airway into Trachea, Via Natural or Artificial Opening (ICD-10-PCS; 2018-07-25)
DX: T39.312A Poisoning by propionic acid derivatives, intentional self-harm, initial encounter (principal); E87.4 Mixed disorder of acid-base balance; F20.2 Catatonic schizophrenia; E87.6 Hypokalemia; E83.51 Hypocalcemia; R35.8 Other polyuria; Y92.009 Unspecified place in unspecified non-institutional (private) residence as the place of occurrence of the external cause

== ENCOUNTER 2018-07-28 19:25 | Inpatient (IN) | payer OTHER ==
[2018-07-28 21:34] VITALS: BMI 21.1
[2018-07-29] MEDS ORDERED: Alum-Mag Hydrox-Simethicone Susp (30 mL) PO PRN (00:13)
[2018-07-29] MEDS ORDERED: Magnesium Hydroxide Susp 30 ml UD PO PRN (00:13)
--- NOTE | 2018-07-29 00:30 | PCM.BM ---
<CainJcarlos - Last Filed: 07/29/18 00:26> Treatment Plan Problems - Problems identified on initial assessmt Hopelessness/Helplessness Date Initiated: 07/28/18 Time Initiated: 20:00 Assessment reference: NA Status: Active Priority: 1 Feelings of Worthlessness Date Initiated: 07/28/18 Time Initiated: 20:00 Assessment reference: NA Status: Active Priority: 2 Ineffective Coping Date Initiated: 07/28/18 Time Initiated: 20:00 Assessment reference: NA Status: Active Priority: 3 Altered Sleep Patterns Date Initiated: 07/28/18 Time Initiated: 20:00 Assessment reference: NA Status: Active Priority: 4 Treatment assets and liabiliti Patient Assests: cooperative, ADL independent, physically healthy, good support system, negotiates basic needs, cognitively intact, good interpersonal skills Patient Liabilities: other (limited personal time) - Milieu Protocol Maintain good personal hygiene: daily Encourage regular showers, every shift Remind patient to perform daily oral care, every shift Assist patient to perform ADL's Maintain personal safety: every shift Educate patient to report safety concerns to staff, every shift Monitor environment for contraband/sharps Medication safety: Monitor for expected outcome, potential side effects: every shift, Assess barriers to learning: every shift, Assess readiness for medication education: every shift Family Contact Family involvement: Family/SO is involved Family contact: Family has been contacted by patient, Other - Goals for Treatment Patient goals for treatment: Be more confident in life situations. Discharge/Continuing Care - Education Needs Education Needs: Patient Medication, Patient Diagnosis/Disease Process, Patient Coping Skills, Patient Anger Management skills, Patient Placement options, Patient Community resources, Patient Activities of Daily Living, Patient Pain, Patient Nutrition, Patient Uses of Medical Equipment, Patient Health Practices/Safety, Patient Personal Hygiene/Grooming, Patient Aftercare Safety Plan - Discharge Discharge Criteria: Tolerates medication w/o severe side effects, Normal sleep pattern <Belle Mazariegos - Last Filed: 07/29/18 12:52> - Diagnosis (1) Depressed Status: Acute Interventions: 07/29/18 12:52 group, milieu and supportive tx * Prozac 10 mg po daily for depression and anxiety * Ativan 1 mg po TID for anxiety * Sonata 5 mg HS prn: insomnia (2) Anxiety Status: Acute Interventions: 07/29/18 12:52 group, milieu and supportive tx * Prozac 10 mg po daily for depression and anxiety * Ativan 1 mg po TID for anxiety * Sonata 5 mg HS prn: insomnia
[2018-07-29] MEDS: Pantoprazole 40 mg EC Tab PO SCH ×2 (06:51→06:58)
[2018-07-29 07:35] VITALS: RESP 20
[2018-07-29 07:46] LABS: GLUCOSE,FASTING 107 mg/dL (65-110); HDL CHOLESTEROL 42 mg/dL (29-60)
[2018-07-29 07:57] LABS: LDL CHOLESTEROL 93 mg/dL (0-129)
--- NOTE | 2018-07-29 12:52 | PCM.PSYCH ---
Initial Psychiatric Evaluation - Initial Psychiatric Evaluation Type of Admission: Voluntary Legal Status: Capacity History of Present Illness and Precipitating Events: Patient is a 58-year-old [place] female with a recent history of depression and anxiety, no prior psychiatric admissions, no prior suicide champs no current outpatient psychiatric treatment who was transferred from the medical side after she was treated in the ICU and medical floor s/p suicide attempt. Patient was seen by Dr. Ferrara from July 26, 2008 to July 28 2008. She was initially uncooperative however by Dr. Ferrara's third visit patient was much more communicative about the events leading to her presentation. Patient reported that she has been feeling depressed, anxious and overwhelmed with symptoms of restless sleep and poor functioning. Apparently patient took extra ibuprofen and melatonin prior to her presentation and wrote a goodbye letter to her family. Stressors include financial, worry about her health and her husbands health as well as a neighbor who was recently diagnosed with Alzheimers dementia. Neighbor's diagnosis and behavior has been concerning and disturbing patient since this neighbor is only a few years older than her. I met with patient at bedside this morning and she is alert and oriented to month, year, location and circumstances. Shes calm and cooperative and her eye contact is good. Patient confirmed that she has been depressed, tired and overwhelmed with stressors. She denies having any wishes or suicidal thoughts repeatedly. Her thought process is coherent and there is no indication of perceptual disturbances. Patient indicates that she is tolerating the medication initiated by Dr. Ferrara and her sleep has improved. She denies any new pain, side effects or concerns at this time. Psychiatric history Patient denies any prior psychiatric hospitalizations Patient denies any prior suicide attempts Patient saw a therapist for the first time at [facility] last Saturday on July 25. Patient denies prior medication trials. Social history Patient was born and raised [place] last [place] years. She has three children at 31-year-old, 29-year-old, 17 year old. Patient resides with her 17-year-old son and her . 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 Denies any drug, alcohol or tobacco use. The patient failed the outpatient lower level of care: Yes Current Medications: Active Medications Generic Name Dose Route Start Last Admin Trade Name Freq PRN Reason Stop Dose Admin Acetaminophen 650 mg 07/29/18 00:13 Tylenol 325mg Tab PO Q6H PRN Pain, moderate (4-7) Al Hydrox/Mg Hydrox/Simethicone 30 ml 07/29/18 00:13 Maalox Plus 30 Ml PO DAILY PRN Indigestion / Heartburn Fluoxetine HCl 10 mg 07/29/18 08:00 Prozac PO DAILY ELEAZAR Lorazepam 1 mg 07/28/18 21:38 07/28/18 22:24 Ativan PO 1 mg TID ELEAZAR Administration Protocol Magnesium Hydroxide 30 ml 07/29/18 00:13 Milk Of Magnesia PO DAILY PRN Constipation Ondansetron HCl 4 mg 07/29/18 00:06 Zofran Tab PO TID PRN Nausea/Vomiting Pantoprazole Sodium 40 mg 07/29/18 06:00 Protonix Ec Tab PO 0600 ELEAZAR Ziprasidone 20 mg 07/29/18 00:14 Geodon Cap PO Q6H PRN Agitation Protocol Ziprasidone 20 mg 07/29/18 00:16 Geodon Inj IM Q6H PRN Severe Agitation Protocol Past Patient History - PSYCHIATRIC Hx Emotional Abuse: No Hx Physical Abuse: No Hx Sexual Abuse: No Hx Substance Use: No - CARDIAC Hx Cardiac Disorders: No - PULMONARY Hx Respiratory Disorders: No - NEUROLOGICAL Hx Neurological Disorder: No - HEENT Hx HEENT Problems: No - RENAL Hx Chronic Kidney Disease: No - ENDOCRINE/METABOLIC Hx Endocrine Disorders: No - HEMATOLOGICAL/ONCOLOGICAL Hx Blood Disorders: No - INTEGUMENTARY Hx Dermatological Problems: No - MUSCULOSKELETAL/RHEUMATOLOGICAL Hx Falls: No - GASTROINTESTINAL Hx Gastrointestinal Disorders: No - GENITOURINARY/GYNECOLOGICAL Hx Genitourinary Disorders: Yes Other/Comment: PAIN UPON URINATION FOR 2 YRS ON AND OFF. - SURGICAL HISTORY Hx Surgeries: No - ANESTHESIA Hx Anesthesia: No Meds Allergies/Adverse Reactions: Allergies Allergy/AdvReac Type Severity Reaction Status Date / Time No Known Allergies Allergy Verified 07/28/18 22:04 Mental Status Examination - Personal Presentation Personal Presentation: Looks stated age - Affect Affect: Constricted - Motor Activity Motor Activity: Calm - Reliability in Providing Information Reliability in Providing Information: Good - Speech Speech: Organized - Mood Mood: Depressed, Anxious - Formal Thought Process Formal Thought Process: No Impairment - Obsessions/Compulsions Obsessions: No Compulsions: No - Cognitive Functions Orientation: Person, Place, Situation Sensorium: Alert Attention/Concentration: Attentive Abstract Thinking: As evidence by abstract perception of proverbs Estimate of Intelligence: Average Judgement: Imparied, as evidence by: Lack of insight into illness Memory: Recent intact, as evidence by: Ability to recall events of the day - Risk Risk: Suicidal, Diminished functioning - Strength & Assets Inventory Strength & Assets Inventory: Family support Results - Vital Signs Recent Vital Signs: Last Vital Signs Temp 98 F 07/28/18 19:30 Pulse 82 07/28/18 20:00 Resp 17 07/28/18 20:00 BP 136/82 07/28/18 19:30 Pulse Ox DSM Plan - DSM 5 DSM 5 Diagnosis: Major Depression, Severe Anxiety Disorder - Recommended/Plan of Treatment Treatment Recommendations and Plan of Treatment: * group, milieu and supportive tx * Prozac 10 mg po daily for depression and anxiety * Ativan 1 mg po TID for anxiety * Sonata 5 mg HS prn: insomnia * Vitals reviewed and noted below: Selected Entries 07/29/18 07:34 Temperature 97.5 F L Pulse Rate 84 Respiratory 20 Rate Blood Pressure 136/82 * Please refer medical assessment from hospitalization 07/25/18-07/28/18 for medical history, medication, ROS and physical exam * Admissions labs noted below: Laboratory Tests 07/29/18 07/29/18 07:00 07:00 Fasting Glucose 107 Triglycerides 143 Cholesterol 150 LDL Cholesterol Direct 93 HDL Cholesterol 42 TSH 3rd Generation 3.64
--- NOTE | 2018-07-29 16:50 | CP.PCM.CON ---
<Oz Weir - Last Filed: 07/29/18 16:58> History of Present Illness - History of Present Illness History of Present Illness: Pt is a 58 yo female who was treated for suicide attempt/ overdose. Pt has no current medical complaints at this time. Pt to remain in the psychiatric unit and follow with her psychiatrist until psyc clears for discharge. Pt denies chest pain, SOB, nausea, vomiting, constipation, diarrhea, or any other medical complaint at this time. Review of Systems - Review of Systems Review of Systems: please see HPI Past Patient History - Past Social History Smoking Status: Never Smoked - CARDIAC Hx Cardiac Disorders: No - PULMONARY Hx Respiratory Disorders: No - NEUROLOGICAL Hx Neurological Disorder: No - HEENT Hx HEENT Problems: No - RENAL Hx Chronic Kidney Disease: No - ENDOCRINE/METABOLIC Hx Endocrine Disorders: No - HEMATOLOGICAL/ONCOLOGICAL Hx Blood Disorders: No - INTEGUMENTARY Hx Dermatological Problems: No - MUSCULOSKELETAL/RHEUMATOLOGICAL Hx Falls: No - GASTROINTESTINAL Hx Gastrointestinal Disorders: No - GENITOURINARY/GYNECOLOGICAL Hx Genitourinary Disorders: Yes Other/Comment: PAIN UPON URINATION FOR 2 YRS ON AND OFF. - PSYCHIATRIC Hx Emotional Abuse: No Hx Physical Abuse: No Hx Sexual Abuse: No Hx Substance Use: No - SURGICAL HISTORY Hx Surgeries: No - ANESTHESIA Hx Anesthesia: No Meds Allergies/Adverse Reactions: Allergies Allergy/AdvReac Type Severity Reaction Status Date / Time No Known Allergies Allergy Verified 07/28/18 22:04 - Medications Medications: Current Medications Acetaminophen (Tylenol 325mg Tab) 650 mg PO Q6H PRN PRN Reason: Pain, moderate (4-7) Al Hydrox/Mg Hydrox/Simethicone (Maalox Plus 30 Ml) 30 ml PO DAILY PRN PRN Reason: Indigestion / Heartburn Fluoxetine HCl (Prozac) 10 mg PO DAILY [facility] Last Admin: 07/29/18 09:16 Dose: 10 mg Lorazepam (Ativan) 1 mg PO TID [facility]; Protocol Last Admin: 07/29/18 14:30 Dose: Not Given Magnesium Hydroxide (Milk Of Magnesia) 30 ml PO DAILY PRN PRN Reason: Constipation Ondansetron HCl (Zofran Tab) 4 mg PO TID PRN PRN Reason: Nausea/Vomiting Pantoprazole Sodium (Protonix Ec Tab) 40 mg PO 0600 [facility] Last Admin: 07/29/18 06:58 Dose: Not Given Zaleplon (Sonata) 5 mg PO HS PRN PRN Reason: Insomnia Ziprasidone (Geodon Cap) 20 mg PO Q6H PRN; Protocol PRN Reason: Agitation Ziprasidone (Geodon Inj) 20 mg IM Q6H PRN; Protocol PRN Reason: Severe Agitation Physical Exam - Head Exam Head Exam: ATRAUMATIC, NORMAL INSPECTION, NORMOCEPHALIC - Eye Exam Eye Exam: EOMI - ENT Exam ENT Exam: Mucous Membranes Moist, Normal Exam - Neck Exam Neck exam: Positive for: Full Rom - Respiratory Exam Respiratory Exam: Clear to Auscultation Bilateral, Respiratory Distress, NORMAL BREATHING PATTERN. absent: Wheezes - Cardiovascular Exam Cardiovascular Exam: RRR, +S1, +S2. absent: Diastolic murmur, Systolic Murmur - GI/Abdominal Exam GI & Abdominal Exam: Normal Bowel Sounds, Soft. absent: Tenderness - Extremities Exam Extremities exam: Positive for: full ROM - Neurological Exam Neurological exam: Alert, Oriented x3 - Skin Skin Exam: Dry, Intact, Warm Results - Vital Signs Recent Vital Signs: Last Vital Signs Temp 97.5 F L 07/29/18 07:34 Pulse 84 07/29/18 07:34 Resp 20 07/29/18 07:34 BP 136/82 07/29/18 07:34 Pulse Ox - Labs Labs: Laboratory Results - last 24 hr 07/29/18 07/29/18 07:00 07:00 Fasting Glucose 107 Triglycerides 143 Cholesterol 150 LDL Cholesterol Direct 93 HDL Cholesterol 42 TSH 3rd Generation 3.64 Assessment & Plan - Assessment and Plan (Free Text) Assessment: Pt is a 58 yo female with no significant PMH who presented to the ED after being found by her son after a suicide attempt and overdose from an unknown white oval tablet Plan: Status post suicide attempt/ overdose - pt has not medical complaints at this time - pt cleared from a medical standpoint at this time - pt hemodynamically stable - no medical intervention needed at this time Thank you for allowing us to participate in the care of this pt We are signing off at this time. Pt seen, examined, assessment and plan discussed with Dr Jessica Weir PGY1 - Date & Time Date: 07/29/18 Time: 12:00 <Hardik Lopez - Last Filed: 07/31/18 16:59> Results - Vital Signs Recent Vital Signs: Last Vital Signs Temp 97.0 F L 07/30/18 07:00 Pulse 85 07/30/18 07:00 Resp 20 07/30/18 07:00 BP 130/54 L 07/30/18 07:00 Pulse Ox Attending/Attestation - Attestation I have personally seen and examined this patient.: Yes I have fully participated in the care of the patient.: Yes I have reviewed all pertinent clinical information: Yes Notes (Text): 07/31/18 16:58 Medical record note made by the resident after discussion with my direction and input after the patient was personally seen and examined by me. I have reviewed the chart and agree that the record accurately reflects by personal performance of the history, physical exam, data review, and medical decision-making, in the course for the patient. I have also personally directed the plan of care. 58 year old female with no PMH who was admitted to the hospitalist service initially after an overdose of an unknown substance was found to be , metabolic acidosis and respiratory acidosis pH: Patient was intubated for respiratory support however was extubated the next day .Metabolic acidosis was resolved. CT of head, chest, abdomen, and pelvis showed no acute findings. Following extubation ,patient was talking and answering questions and then became unresponsive. It was determined she had an episode fo catatonia which was treated with 1mg of Ativan per psychiatric consultation. Pt then recovered and is currently AAO x 3. On day of discharge pt is medically stable and has no acute complaints.She is alert,awake and oriented. Urine cultures grew showed klebsiella, but UA is negative for UTI.Patient is asymptomatic, antibiotics were discontinued. Patient is now admitted to Psychiatry for further management. There is no active medical issue at this time.We will sign off. Please call us back if any question. Management plan was discussed in detail with patient. Education was provided.
[2018-07-30] MEDS: Pantoprazole 40 mg EC Tab PO SCH (06:42)
[2018-07-30 07:01] VITALS: BP 130/54; PULSE 85; TEMP 97
--- NOTE | 2018-07-31 06:04 | PN ---
DATE: 07/31/[address] Ferrara. Chart reviewed and case discussed with nursing. The patient is a 58-year-old [place] female with a recent history of depression and anxiety. She does not have any prior psychiatric history and nor any attempts at self-harm or outpatient psychiatric care. She had initially been treated in the ICU after a reported suicide attempt. She was initially seen by Dr. Ferrara. She was initially uncooperative, however, she became more communicative and transferred here. She indicated she had been feeling depressed, anxious and overwhelmed with symptoms of restlessness, sleep impairment, poor functioning. She took several extra melatonin and ibuprofen and had written a letter to her family. She indicated she worries about her health, about her 's health and was upset about a neighbor recently diagnosed with Alzheimer disease. The patient describes herself as being always nervous and anxious, lifelong trait. She, however, indicated that this was an overreaction, regress of actions, and never considered herself to be suicidal. She appeared to be alert, oriented, goal-directed, not homicidal or suicidal and was anxious to leave the hospital. In the hospital, she had been started on an Ativan 1 mg t.i.d., Prozac 10 mg per day. She had seen a therapist at the [facility] this past Saturday (07/25). Nursing indicated that the patient's mood in fact did appear brighter, with her being less anxious, she did not appear to be psychotic or suicidal or homicidal. She appeared to be pleasant. She socialized well with other patients. A biochemical profile was within normal limits. Her vital signs showed slightly elevated systolic blood pressure of 130, slightly lowered of 154. Temperature was 97, pulse 85, respiratory rate 20. As per the patient's wishes, she was discharged home. She was instructed to see me within 1 week and was to see a therapist, Dr. Garcia whom she had seen last week. Koby Khan MD/ PhD
== END 2018-07-30 16:30 | disposition home or self-care (01) | DRG 885 ==
LOC: PSYC 19:25
PROVIDERS: ADMIT Psychiatry & Neurology Psychiatry; ATTEND Psychiatry & Neurology Psychiatry
DX: F32.2 Major depressive disorder, single episode, severe without psychotic features (principal); F41.9 Anxiety disorder, unspecified; Z91.5 Personal history of self-harm